=== PATIENT | female | born 1935 | race Caucasian/White ===

== ENCOUNTER 2016-09-26 14:15 | Inpatient (IN) | payer MEDICAID, MEDICARE ==
[~2016-09-26] VITALS: Ht 172.7 cm; Wt 110.7 kg
[~2016-09-26 14:15] MED LIST: ASPI325T32 PO; CHOL5000 PO; DONE5TAB30 PO; FLUT16SP NS; FOLI0.4T2 PO; HYDR-3939 PO; LEVO200T6 PO; LISI10TA PO; MAGN400T4 PO; NITR0.4T6 SL; POLY17PO6 PO; PRAM0.5T10 PO; TAMO10TA4 PO
[2016-09-26 14:19] VITALS: BP 125/68; PULSE 86; RESP 22; O2SAT 94
--- NOTE | 2016-09-26 14:54 | ED.REPORT ---
HPI-General Illness Date of Service Sep 26, 2016 ED Provider: Price Bhat DO Pt is a 80 y/o female with a history of metastatic low-grade endometrial adenocarcinoma, HTN, hyperlipidemia, presenting to the ED with her son c/o progressively worsening SOB onset 3 days ago. She believes her SOB is due to ascites. Pt c/o associated diarrhea for 2 days. Pt denies cough, change in lower extremity edema, abdominal pain, chills, fever, chest pain. She was discharged 30 days ago due to SBO. During that admission she had a bowel stent placed. She does not believe her symptoms are due to Influenza. Nursing Notes Stated Complaint: SHORTNESS OF BREATH Chief Complaint: Respiratory Distress Nursing Notes Reviewed: Yes Allergies: Coded Allergies: niacin (Verified Allergy, Severe, 08/24/16) amoxicillin (Verified Allergy, Unknown, 08/24/16) clavulanic acid (Verified Allergy, Unknown, 08/24/16) codeine (Verified Allergy, Unknown, 08/24/16) diphenhydramine (Verified Allergy, Unknown, 08/24/16) Scheduled Aspirin (Aspirin) 325 Mg Tablet 325 MG PO DAILY Cholecalciferol (Vitamin D3) (Vitamin D3) 5,000 Unit Capsule 5,000 UNIT PO 4xweekly Donepezil (Donepezil) 5 Mg Tablet 5 MG PO HS Fluticasone Propionate (Fluticasone Propionate Nasal) 16 Gm [place].susp 2 SPRAY NS DAILY Folic Acid (Folic Acid) 0.4 Mg Tablet 0.4 MG PO DAILY Hydralazine (Hydralazine) 25 Mg Tablet 25 MG PO TID Levothyroxine (Levothyroxine) 200 Mcg Tablet 200 MCG PO DAILY Lisinopril (Lisinopril) 10 Mg Tablet 10 MG PO DAILY Magnesium Oxide (Magnesium Oxide) 400 Mg Tablet 400 MG PO DAILY Polyethylene Glycol 3350 (Miralax) 17 Gm Powd.pack 17 GM PO DAILY Pramipexole Dihydrochloride (Pramipexole Dihydrochloride) 0.5 Mg Tablet 0.25 MG PO HS Tamoxifen Citrate (Tamoxifen Citrate) 10 Mg Tablet 20 MG PO BID Scheduled PRN Nitroglycerin SL (Nitroglycerin SL) 0.4 Mg Tab.subl 0.4 MG SL PRN For Chest Pain General Time Seen by MD: 14:53 Transferred From: [facility] Chief Complaint Breathing problem Hx Obtained From: Patient, Son Arrived By: Walk-in Sudden in Onset?: No Onset Occurred: 3 days ago Symptom Duration: Since onset Severity: Current: No pain currently Severity: Maximum: No pain Past Medical History Past Medical History Metastatic low grade endometrial adenocarcinoma, initially diagnosed 15-20 years ago, recurrence in 2006, and again in 2012 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 Severe diverticulosis chronic back pain History of superficial bladder cancer Large ventral abdominal wall hernia Reports: Cancer, GERD, Hyperlipidemia, Hypertension Past Surgical History Bowel resection x2 for recurrent CA Negative cardiac cath in 2005 Reports: Hysterectomy Reports: Portocath Smoking History Former Smoker, Never Smoker Social History Alcohol Use: Denies alcohol use Drug Use: Denies drug use Other Social History: Local resident Ambulatory Status Independent Review of Systems Full Review of Systems Constitutional: Denies: Chills, Fever Respiratory: Reports: Shortness of breath, Denies: Non-productive cough Cardiovascular: Denies: Chest pain, Edema GI: Reports: Diarrhea, Denies: Abdominal pain Complete sys rev & neg: except as marked. Physical Exam Vital Signs Vital Signs Date Time Temp Pulse Resp B/P Pulse Ox O2 Delivery O2 Flow Rate FiO2 09/26/16 17:48 89 15 149/70 94 Room Air 09/26/16 14:19 35.8 86 22 125/68 94 Room Air Initial VS: Reviewed Head / Eyes: Atraumatic, Normocephalic, PERRL Neck: Full range of motion Skin: Warm, Dry, No cyanosis Neurologic: Alert, Oriented, Nonfocal Psychiatric: Mood/affect normal, Behavior normal, Normal thought content General/Constitutional: Awake, Alert, No acute distress, Cooperative, Not toxic appearing Appearance / Presentation: Positive: Obese Abdomen: Atraumatic Back: Full range of motion, Painless range of motion Interpretation & Diagnostics Lab Results Interpretation Result Diagram: 09/26/16 1531 09/26/16 1531 Test 09/26/16 15:31 White Blood Count 6.8th/mm3 (3.8-10.1) Red Blood Count 4.53mil/mm3 (3.90-5.20) Hemoglobin 13.5g/dL (12.0-15.6) Hematocrit 39.4% (35.0-46.0) Mean Corpuscular Volume 87.0fL (81-100) Mean Corpuscular Hemoglobin 29.8pg (27.0-35.0) Mean Corpuscular Hemoglobin Concent 34.3% (32.0-37.0) Red Cell Distribution Width 13.8% (12.3-15.4) Platelet Count 167bil/L (150-400) Neutrophils (%) (Auto) 64.6% (40-74) Lymphocytes (%) (Auto) 23.2% (14-46) Monocytes (%) (Auto) 6.6% (4-12) Eosinophils (%) (Auto) 4.9% (0-5) Basophils (%) (Auto) 0.6% (0-3) Activated Partial Thromboplast Time 23.6sec (22.8-33.0) D-Dimer 5.1mg/L (<0.50) Sodium Level 135mEq/L (134-144) Potassium Level 3.5mEq/L (3.5-5.2) Chloride Level 97mEq/L (97-108) Carbon Dioxide Level 23mmol/L (18-29) Blood Urea Nitrogen 20mg/dL (8-27) Creatinine 0.96mg/dL (0.57-1.00) Estimat Glomerular Filtration Rate 80mL/min (>59) Glucose Level 112mg/dL (60-99) Calcium Level 9.3mg/dL (8.5-10.1) Magnesium Level 2.1mg/dL (1.6-2.6) Total Bilirubin 0.3mg/dL (0.0-1.2) Aspartate Amino Transf (AST/SGOT) 37U/L (0-50) Alanine Aminotransferase (ALT/SGPT) 33U/L (0-32) Alkaline Phosphatase 56U/L (25-165) Troponin T 0.028ug/L (0.0-0.011) Pro-B-Type Natriuretic Peptide 7516pg/mL (0-738) Total Protein 6.6g/dL (6.4-8.4) Albumin 3.7g/dL (3.4-5.0) Hold Harper Top Tube Received (Received) Lab Results Interpretation: ECG Interpretation ECG Interpretation: Sinus rhythm rate 77 S1 Q3 T3 present Time: 16:26 Interpreted by: ED physician Normal ECG Interpretation: No acute ischemic changes X-Ray Chest Interpretation Chest Xray Interpretation: IMPRESSION: Cardiomegaly. No acute pulmonary process. Dictated by: Divine Baum M.D. on 09/26/2016 at 15:32 Approved by: Divine Baum M.D. on 09/26/2016 at 15:32 View: Portable, 1 view Interpretation / Wet Read by: Interpret - Radiologist CT Chest Interpretation Prelim wet read: Bilateral PE Study type: CT pulm angiogram Interpretation / Wet Read by: Wet read ED physician Re-Eval/Medical Decision Med Decision/Clinical Course Bilateral pulmonary emboli, patient is heparinized in the ER, patient will be admitted. Source of Hx: Old records Time of Eval: 17:46 Re-Evaluation/Progress Note: Pt rechecked. Informed pt of need for admission due to PE. Pt understands and agrees with plan for admission. All questions addressed. Consultation : Referral / Consult Name: Paul Max MD Consulted With: Hospitalist Call Returned at: 18:22 Poly Area Supervisor: Will see patient, Agrees with eval, Agrees with plan, Accepts admit Counseled Regarding: Diagnosis, Lab results, Need for admission Discharge & Departure Primary Impression: Bilateral pulmonary embolism Disposition: ADMITTED TO HOSPITAL Discharge Condition All VS Reviewed: Yes Condition: Stable Referrals: Gilma Worrell (PCP) Crit Care Except Billable Proc Time Spent: 30-74 minutes Services Performed: Patient management by me, Time spent at bedside, Reviewing test results, Reviewing imaging, Discussing patient care, Documentation in record Critical Care Notes: See MDM Scribe Attestation Portions of this note were transcribed by David Echeverria and Chris Crystal. I , Dr. Bhat personally performed the history, physical exam and medical decision-making; I reviewed and confirmed the accuracy of the information in the transcribed note. Signed by: David Echeverria and Chris Crystal, Yelitza, [09/26/16] and [1600]. copies to: Gilma Worrell Timothy Ira BROWN Sep 26, 2016 14:54 David Echeverria Sep 26, 2016 16:00 CHRIS CRYSTAL Sep 26, 2016 16:24
[2016-09-26] MEDS ORDERED: Ondansetron 2 mg/mL 2 mL Inj IVPUSH ONE (15:20)
[2016-09-26] MEDS ORDERED: 0.9% Sodium Chloride 1,000 ML IV ONE (15:20)
--- NOTE | 2016-09-26 15:34 | DRSVH ---
PROCEDURE: X-RAY CHEST ONE VIEW, PORTABLE ([id number]) INDICATIONS: Exertional SOB TECHNIQUE: One view of the chest was acquired. COMPARISON: [facility], , CHEST 2VW, 11/07/2012, 10:50. FINDINGS: Surgical changes and devices: None. Lungs and pleura: No pleural effusions or pneumothorax. Lungs are clear. Mediastinum: Mediastinal contours appear normal. Heart size is enlarged. Bones and chest wall: No suspicious bony lesions. Overlying soft tissues appear unremarkable. IMPRESSION: Cardiomegaly. No acute pulmonary process. Dictated by: Divine Baum M.D. on 09/26/2016 at 15:32 Approved by: Divine Baum M.D. on 09/26/2016 at 15:32
[2016-09-26 15:42] LABS: BASOPHILS % (AUTO) 0.6 % (0-3); EOSINOPHILS % (AUTO) 4.9 % (0-5); MONOCYTES % (AUTO) 6.6 % (4-12); Mean Corpuscular Hemoglobin 29.8 pg (27.0-35.0); NEUTROPHILS % (AUTO) 64.6 % (40-74); Platelet Count 167 bil/L (150-400)
[2016-09-26 16:04] LABS: TROPONIN T 0.028 ug/L (0.0-0.011)
[2016-09-26 16:15] LABS: Magnesium 2.1 mg/dL (1.6-2.6)
[2016-09-26] MEDS ORDERED: Heparin 25K Unit/500mL 0.45 NS 25,000 UNIT in IV Premix 1 EACH IV ONE (17:45)
[2016-09-26] MEDS ORDERED: Heparin 5,000 Unit/mL Inj IVPUSH ONE (17:45)
[2016-09-26 17:48] VITALS: BP 149/70; PULSE 89; RESP 15; O2SAT 94
--- NOTE | 2016-09-26 18:25 | DRSVH ---
PROCEDURE: CT ABDOMEN AND PELVIS WITH CONTRAST ([id number]) INDICATIONS: dyspnea and abdominal pain. TECHNIQUE: After the administration of intravenous contrast, 5 mm thick sections acquired from the diaphragm to the symphysis. 5 mm coronal and sagittal reformats were acquired. For radiation dose reduction, the following was used: automated exposure control, adjustment of mA and/or kV according to patient bety cadena. COMPARISON: [facility], CT, CT CHEST ABD PELVIS W CON, 07/05/2016, 12:02. [facility], CT, CT ABD PELVIS W CON, 08/24/2016, 13:01. FINDINGS: Image quality: Excellent. ABDOMEN: Lung bases: Lung bases are clear. Heart size is normal. Solid organs: Liver and spleen are normal in size and enhancement. Gallbladder is surgically absent . Biliary system is non dilated. Pancreas enhances normally. No adrenal nodules. Kidneys demonstr ate normal size and enhancement, without hydronephrosis. Peritoneum and bowel: The there is a 1.6 x 3.1 cm soft tissue nodule in the left lower anterior abdo men (series 11 image 52), unchanged. A 2.2 x 1.0 cm peritoneal/omental nodule seen at midline (series 11 image 41), also unchanged. There is a stent in rectosigmoid junction, which is thickened. Bowel l oops demonstrate normal wall thickness and caliber. No free fluid or air. Nodes and vessels: No retroperitoneal or mesenteric adenopathy by size criteria. Aorta and inferior vena cava are normal in size. Miscellaneous: There is a ventral hernia with wide neck. PELVIS: Genitourinary: Bladder wall thickness is normal. Miscellaneous: No inguinal hernias or adenopathy. Bones: No suspicious bony lesions. No vertebral body compression fractures. IMPRESSION: 1. A stent present in the rectosigmoid junction which is thickened. No evidence for bowel obstruction . 2. Stable peritoneal carcinomatosis. 3. Wide-necked ventral hernia. Dictated by: Fabrizio Broussard M.D. on 09/26/2016 at 18:24 Approved by: Fabrizio Broussard M.D. on 09/26/2016 at 18:24
--- NOTE | 2016-09-26 18:31 | DRSVH ---
PROCEDURE: CT ANGIO CHEST PULMONARY EMBOLISM ([id number]) INDICATIONS: dyspnea, elevated ddimer TECHNIQUE: After the administration of intravenous contrast, 2 mm thick sections acquired from the pulmonary api margaret to the posterior costophrenic angles. 3-dimensional maximum intensity projection (MIP) coronal a nd sagittal reformats were then acquired through the thorax. For radiation dose reduction, the follo wing was used: automated exposure control, adjustment of mA and/or kV according to patient size. COMPARISON: [facility], CT, CT ABD PELVIS W CON, 09/26/2016, 17:04. [facility], CT, CT CHEST ABD PELVIS W CON, 01/05/2016, 12:32. [facility], CT, CT CHEST ABD PELVIS W CON, 07/05/2016, 12:02. FINDINGS: Image quality: Excellent. Pulmonary arteries: There are extensive filling defects the main pulmonary arteries bilaterally, as well as the low arteries and segmental arteries, consistent with extensive central pulmonary embolism . Pulmonary arteries are normal in size. Lungs and pleura: Lungs are clear. No pleural effusions or pneumothorax. Central and peripheral ai rways are patent. Mediastinum: Heart size is normal, without pericardial effusion. No mediastinal or hilar adenopathy . Thoracic aorta is normal in caliber and enhancement. Esophagus is normal in caliber, without hiat al hernia. Bones and chest wall: No suspicious bony lesions. Ribs and thoracic spine appear intact throughout. Thyroid gland is unremarkable. No axillary or supraclavicular adenopathy. Abdomen: Visualized upper abdominal solid organs appear normal in the early arterial phase of enhanc ement. IMPRESSION: 1. Extensive central pulmonary embolism bilaterally. The result was discussed with Dr. Bhat prior to dictation. Dictated by: Fabrizio Broussard M.D. on 09/26/2016 at 18:29 Approved by: Fabrizio Broussard M.D. on 09/26/2016 at 18:29
--- NOTE | 2016-09-26 18:45 | PCM.HPMED ---
Subjective Date of Service Sep 26, 2016 Primary Provider: Admitting Physician: Primary Care Physician: Gilma Worrell Attending Physician: Chief Complaint: Progressive worsening shortness of breath 3 days History of Present Illness: Pt is a 80 y/o female with a history of metastatic low-grade endometrial adenocarcinoma, HTN, hyperlipidemia, presenting to the ED with her son c/o progressively worsening SOB onset 3 days ago. She believes her SOB is due to ascites. Pt c/o associated diarrhea for 2 days. Pt denies cough, change in lower extremity edema, abdominal pain, chills, fever, chest pain. She was discharged 30 days ago due to SBO. During that admission she had a bowel stent placed. She does not believe her symptoms are due to Influenza. Review of Systems: Gen.: No fevers chills weight loss weight gain Eyes: no visual disturbances or blurring vision HEENT: No nose/throat drainage, no pain in ears or throat, no hearing loss Lymph: No lymph nodes noted Cardiac: No chest pain, orthopnea, PND, palpitations , chronic pedal edema sudden onset dyspnea Pulmonary: no cough, wheezing or bringing up of sputum, sudden onset dyspnea GI: No anorexia nausea vomiting blood or black in the stool : no dysuria hematuria urinary frequency or decrease in urine output Musculoskeletal: Joint swelling no joint pain no new muscle aches or back pain... legs are locked in and painful Neuro: No syncope, seizures no loss of consciousness no new focal weakness, numbness or tingling Psychiatric: New new anxiety insomnia or depression Endocrine: No new heat or cold intolerances polyuria or polydipsia Hematology: No lymphadenopathy or easy bleeding or bruising noted skin: No new rashes, stasis dermatitis Allergies Coded Allergies: niacin (Verified Allergy, Severe, 09/26/16) amoxicillin (Verified Allergy, Unknown, 09/26/16) clavulanic acid (Verified Allergy, Unknown, 09/26/16) codeine (Verified Allergy, Unknown, 09/26/16) diphenhydramine (Verified Allergy, Unknown, 09/26/16) Home Medications Scheduled Aspirin (Aspirin) 325 Mg Tablet 325 MG PO DAILY Cholecalciferol (Vitamin D3) (Vitamin D3) 5,000 Unit Capsule 5,000 UNIT PO 4xweekly Donepezil (Donepezil) 5 Mg Tablet 5 MG PO HS Fluticasone Propionate (Fluticasone Propionate Nasal) 16 Gm [place].susp 2 SPRAY NS DAILY Folic Acid (Folic Acid) 0.4 Mg Tablet 0.4 MG PO DAILY Hydralazine (Hydralazine) 25 Mg Tablet 25 MG PO TID Levothyroxine (Levothyroxine) 200 Mcg Tablet 200 MCG PO DAILY Lisinopril (Lisinopril) 10 Mg Tablet 10 MG PO DAILY Magnesium Oxide (Magnesium Oxide) 400 Mg Tablet 400 MG PO DAILY Polyethylene Glycol 3350 (Miralax) 17 Gm Powd.pack 17 GM PO DAILY Pramipexole Dihydrochloride (Pramipexole Dihydrochloride) 0.5 Mg Tablet 0.25 MG PO HS Tamoxifen Citrate (Tamoxifen Citrate) 10 Mg Tablet 20 MG PO BID Scheduled PRN Nitroglycerin SL (Nitroglycerin SL) 0.4 Mg Tab.subl 0.4 MG SL PRN For Chest Pain PMH Social History Hx Alcohol Use: Yes (occasional) Hx Substance Use: No Hx Tobacco Use: No Smoking Status: Former Smoker, Never Smoker Exam Vital Signs Vital Sign - Last Date Time Temp Pulse Resp B/P Pulse Ox O2 Delivery O2 Flow Rate FiO2 09/26/16 17:48 89 15 149/70 94 Room Air 09/26/16 14:19 35.8 Exam Gen.- A+ O 3 no apparent distress.morbidly obese patient lying in bed Eyes- open conjunctiva clear, pupils equal nonicteric ENT- ears normal, nose normal Neck- supple/trach midline CVS- RRR no murmur or gallop, 2-3+ pitting edema bilaterally of the legs Lungs CTA GI- NABS/NT soft Musc- moving 4 no obvious deformity Neuro- cranial nerves II through XII intact to gross examination, nonfocal Skin- warm and dry, erythema bilaterally lower extremity Psych- pleasant and appropriate, Lab and Diagnostics Labs trop 0.028, bnp 7516 LFTs wnl fadumo "H" 33 UA neg Result Diagram: 09/26/16 1531 09/26/16 1531 X-Rays, CTs and MRIs CT abd/pelvis 1. A stent present in the rectosigmoid junction which is thickened. No evidence for bowel obstruction. 2. Stable peritoneal carcinomatosis. 3. Wide-necked ventral hernia. CTA chest 1. Extensive central pulmonary embolism bilaterally. CXR-Cardiomegaly. No acute pulmonary process. 12-lead ECG Sinus with a rate of 77 borderline [place] intervals feel, QTC 503 ms nonspecific abnormalities in anterior leads with flattening T waves lateral no acute ST segment elevations personally reviewed by me Cardiac Echo Impressions 12/22/14 There is moderate concentric left ventricular hypertrophy. Left ventricular systolic function is normal without focal wall motion abnormalities. The ejection fraction is estimated to be 60-65%. Assessment of diastolic parameters indicates a relaxation abnormality of the left ventricle, consistent with normal filling pressures. The right ventricle is normal in size and function. The left atrium is moderately dilated. Right atrial size is normal. There is no significant valvular heart disease. The aortic root is normal size. Assessment & Plan 80-year-old female with cancer presents with shortness of breath and is found to have fairly substantial pulmonary emboli PE-patient on a heparin drip, starting warfarin but one could easily argue that she should be discharged on Lovenox as this is cancer related. We will obtain Dopplers of the legs to determine whether this is the source as well as an echocardiogram to determine if there is actually ventricular strain to have grade the severity of clot burden, elevated BNP is concerning. Suggest patient should probably be on a heparin drip for 5 days and be therapeutic on warfarin before she leaves.she has DVTs I am going to keep her on bed rest as I am fearful that she has substantial enough clot burden that mobilizing anything may cause her to decompensate. Leg pain- patient may have restless legs would examine gabapentin perhaps long-acting morphine Palliative care- patient is very clear she wants to be comfortable and we seemingly have not achieved that goal with her. Therefore I have ordered palliative care consultation but not made any calls as I did so it after midnight. Uterine cancer- continue home meds Hypertension- continue home meds Prophylaxis- DVT patient's already on a heparin dripSCDs are contraindicated with DVT, GI not indicated that she yet Disposition- DO NOT RESUSCITATE from a prison Palu Max MD Sep 26, 2016 18:45
[2016-09-26] MEDS ORDERED: Ondansetron 2 mg/mL 2 mL Inj IVPUSH PRN (18:50)
[2016-09-26] MEDS ORDERED: Alum-Mag Hydrox-Simeth 30 mL Suspension PO PRN (18:50)
[2016-09-26 19:30] VITALS: BP 135/75; PULSE 82; RESP 19; O2SAT 94
[2016-09-26] MEDS ORDERED: TAMO20TA4 PO (19:40)
[2016-09-26] MEDS ORDERED: POLY17PO6 PO (19:40)
[2016-09-26] MEDS ORDERED: FURO40TA4 PO (19:40)
[2016-09-26] MEDS ORDERED: FOLI0.8C PO (19:40)
[2016-09-26 20:05] VITALS: BP 146/75; PULSE 90; RESP 21; O2SAT 96
--- NOTE | 2016-09-26 21:00 | NUR ---
Admit: Pt transferred from ED. Ambulated from [facility] to [facility] bed with 1 assist. Pt is a/o x3 but a little forgetful. VSS. No orders received yet.
[2016-09-26] MEDS ORDERED: Polyethylene Glycol (PEG) 17 Gm Powder PO PRN (21:55)
[2016-09-26] MEDS ORDERED: Fluticasone 0.05% 15 Spray/2 Gm 16 Gm Nasal Spray NASAL PRN (21:55)
[2016-09-26 23:26] VITALS: PULSE 88
[2016-09-27] VITALS (7 sets, daily range): BP systolic 114–149; BP diastolic 52–78; PULSE 74–82; RESP 12–20; O2SAT 94–97
[2016-09-27] MEDS: HYDROcodone-APAP 5-325 mg Tablet PO PRN ×2 (00:05→09:16)
--- NOTE | 2016-09-27 00:24 | PCM.CONPHA ---
Subjective Date of Service: Sep 27, 2016 Requesting Provider: Paul Max MD Reason for Pharmacy Consult: Anticoagulation Management Objective Vital Signs Date Time Temp Pulse Resp B/P Pulse Ox O2 Delivery O2 Flow Rate FiO2 09/26/16 23:26 88 09/26/16 20:30 Supplement Oxygen 09/26/16 20:05 36.7 90 21 146/75 96 Nasal Cannula 2.00 09/26/16 19:30 82 19 135/75 94 Nasal Cannula 2 09/26/16 17:48 89 15 149/70 94 Room Air 09/26/16 14:19 35.8 86 22 125/68 94 Room Air Intake and Output 09/24/16 09/25/16 09/26/16 23:59 23:59 23:59 Intake Total 1000 ml Balance 1000 ml Weight (Kilograms): 112.600 Height (Feet): 5 Height (Inches): 8.00 Test 09/26/16 15:31 09/26/16 22:55 White Blood Count 6.8th/mm3 (3.8-10.1) Red Blood Count 4.53mil/mm3 (3.90-5.20) Hemoglobin 13.5g/dL (12.0-15.6) Hematocrit 39.4% (35.0-46.0) Mean Corpuscular Volume 87.0fL (81-100) Mean Corpuscular Hemoglobin 29.8pg (27.0-35.0) Mean Corpuscular Hemoglobin Concent 34.3% (32.0-37.0) Red Cell Distribution Width 13.8% (12.3-15.4) Platelet Count 167bil/L (150-400) Neutrophils (%) (Auto) 64.6% (40-74) Lymphocytes (%) (Auto) 23.2% (14-46) Monocytes (%) (Auto) 6.6% (4-12) Eosinophils (%) (Auto) 4.9% (0-5) Basophils (%) (Auto) 0.6% (0-3) Activated Partial Thromboplast Time 23.6sec (22.8-33.0) D-Dimer 5.1mg/L (<0.50) Sodium Level 135mEq/L (134-144) Potassium Level 3.5mEq/L (3.5-5.2) Chloride Level 97mEq/L (97-108) Carbon Dioxide Level 23mmol/L (18-29) Blood Urea Nitrogen 20mg/dL (8-27) Creatinine 0.96mg/dL (0.57-1.00) Estimat Glomerular Filtration Rate 80mL/min (>59) Glucose Level 112mg/dL (60-99) Calcium Level 9.3mg/dL (8.5-10.1) Magnesium Level 2.1mg/dL (1.6-2.6) Total Bilirubin 0.3mg/dL (0.0-1.2) Aspartate Amino Transf (AST/SGOT) 37U/L (0-50) Alanine Aminotransferase (ALT/SGPT) 33U/L (0-32) Alkaline Phosphatase 56U/L (25-165) Troponin T 0.028ug/L (0.0-0.011) Pro-B-Type Natriuretic Peptide 7516pg/mL (0-738) Total Protein 6.6g/dL (6.4-8.4) Albumin 3.7g/dL (3.4-5.0) Hold Harper Top Tube Received (Received) Prothrombin Time 10.7sec (8.1-12.5) Prothromb Time International Ratio 1.00ratio Assessment/Plan Assessment/Plan A: * Warfarin dosing by pharmacy for 80 y/o woman with PE * She was on IV heparin in the ED, switched to therapeutic Lovenox inpatient * The patient is on tamoxifen, which can increase INR significantly P: * Give one dose of warfarin 5 mg * Draw daily INR * Target INR range of 2 - 3 * Pharmacy to monitor INR and determine doses accordingly Thank you. Pharmacy will continue to follow. Samantha Childers, PharmD Samantha Childers Sep 27, 2016 00:24
[2016-09-27] MEDS ORDERED: Heparin 5,000 Unit/mL Inj IVPUSH PRN (01:00)
[2016-09-27] MEDS: Sodium Chloride LOK Flush 10 mL Syringe IVFLUSH SCH ×3 (01:02→16:30)
--- NOTE | 2016-09-27 02:13 | NUR ---
Pain Pt states she is responding well to the PRN Morphine medication with a pain level of 9/10. Pt states she has a minor ache and throb to both lower legs.
[2016-09-27 06:05] LABS: BASOPHILS % (AUTO) 0.9 % (0-3); EOSINOPHILS % (AUTO) 7.8 % (0-5); MONOCYTES % (AUTO) 7.1 % (4-12); Mean Corpuscular Hemoglobin 29.6 pg (27.0-35.0); Mean Corpuscular Volume 87.7 fL (81-100); NEUTROPHILS % (AUTO) 50.8 % (40-74); Platelet Count 161 bil/L (150-400)
[2016-09-27 07:07] LABS: TROPONIN T 0.013 ug/L (0.0-0.011)
--- NOTE | 2016-09-27 08:51 | DRSVH ---
PROCEDURE: US VENOUS LEG DUPLEX BILATERAL INDICATIONS: 80 year-old female with pulmonary embolism, uterine carcinoma and melanoma. TECHNIQUE: Real-time imaging, as well as color and pulse Doppler interrogation, were performed of the deep veins of both legs from the inguinal ligament to the popliteal fossa. COMPARISON: [facility], CT, CT ANGIO CHEST PE, 09/26/2016, 17:04. FINDINGS: Preliminary interpretation rendered by [facility]. Nonocclusive echogenic thrombi are noted in both inferior portions of the superficial femoral veins a nd both popliteal veins. The common femoral veins are normally compressible and free of intraluminal thrombus. Color and pulse Doppler demonstrate normal phasic intravascular flow. IMPRESSION: Bilateral nonocclusive deep venous thrombosis in the inferior portions of the superficial femoral veins and popliteal veins. No significant discrepancy with preliminary [facility] report. Dictated by: Samuel Vo M.D. on 09/27/2016 at 8:49 Approved by: Samuel Vo M.D. on 09/27/2016 at 8:49
--- NOTE | 2016-09-27 09:15 | PCM.PALLBR ---
Palliative Care Recommendation Pleasant 80-year-old woman with long history of indolent metastatic endometrial cancer, now presenting with bilateral pulmonary emboli. Significant forgetfulness/dementia, per her son significantly exacerbated with hospitalization. Palliative medicine consulted to review goals of care. Reviewed plans today with her son/POA by phone. Summary of palliative recommendations: -Symptom management (Pain/other)- continue symptomatic management of her mild pleuritic chest discomfort with medications ordered by hospitalist. Continues on IV heparin at this time- her forgetfulness and anticipated difficulty taking medications properly at home will definitely have an impact on choice of long-term anticoagulation (her son thinks subcutaneous injections daily will not be possible). Monitor pain in the coming days and adjust her pain medications as needed, aware of the potential for increasing confusion, etc. in light of her underlying dementia. -DPOA/Advanced Directives/POLST- DO NOT RESUSCITATE/DO NOT INTUBATE/limited interventions. Plan on completing new POLST prior to discharge. -Family/emotional support- her son has been very supportive. He and other family members are considering encouraging a transition to assisted living/SNF- this may be necessary in light of her additional new medications for treatment of her pulmonary emboli. Further conversations with case management/discharge planning in the coming days. Patient Goals: 1. Patient and family want to be told the truth about her illness, even if it is unpleasant. 2. Patient and family would like to be told prognosis when it can be predicted, to better guide treatment decisions. Additional Medical Diagnoses with primary management by Hospitalist team include : PE-patient on a heparin drip, starting warfarin but one could easily argue that she should be discharged on Lovenox as this is cancer related. Leg pain- patient may have restless legs would examine gabapentin perhaps long-acting morphine Palliative care- patient is very clear she wants to be comfortable and we seemingly have not achieved that goal with her. Therefore I have ordered palliative care consultation but not made any calls as I did so it after midnight. Uterine cancer- continue home meds Hypertension- continue home meds Prophylaxis- DVT patient's already on a heparin dripSCDs are contraindicated with DVT, GI not indicated that she yet Problems: End of Life Preferences DO NOT RESUSCITATE/DO NOT INTUBATE/limited interventions Goals of Care Patient prefers to return to her own home, though her viability there is becoming tenuous Disposition To be determined Resuscitation Status Resuscitation Status: Limited Interventions POLST Updates/Changes Previous POLST?: No . Pain: Mild Symptom management: Pain Total time 60 minutes; >50% face to face with patient and family, providing counselling regarding plans and recommendations, and in care coordination with her medical teams. Of the above total time, 10 minutes counseling for advanced care planning with the patient and her son, reviewing advanced directive issues and POLST Palliative Brief Note Date of Service Sep 27, 2016 . Pleasant 80-year-old woman admitted with bilateral pulmonary emboli, in setting of long-standing/indolent metastatic endometrial cancer. Was recently hospitalized with bowel obstruction and was seen by palliative medicine during that admission as well (please refer to my initial consultation note of 08/25/16 as well as follow-up notes). Palliative medicine consult once again to review goals of care, etc. Prior to visiting patient, I reviewed her records in the EMR in detail. On my arrival, she is sitting up in bed, eating breakfast. As before, she is very pleasant but extremely forgetful. Cannot remember why she is here, cannot remember having met me before, cannot recall clearly the events that brought her into the hospital. She complains of some diffuse pleuritic chest discomfort (and cannot recall receiving pain medication for it, so she has received both oral and IV meds in the evening). She denies any significant dyspnea, nausea, abdominal pain or other symptoms. She says her bowel function is fine but cannot remember having had placement of the colonic stent at her last hospitalization. She denies any recent problems with her legs such as pain , increased swelling or other. She does say she has problems chronically with restless legs. On exam, she is a heavyset woman lying in bed. In no obvious distress. Vital signs noted. Skin is pink, warm and dry. Head and neck exam without acute focal findings. Lungs with decreased breath sounds diffusely, at least partly because of her bulk. Heart sounds distant and regular. Abdomen is obese, soft , without tenderness or peritoneal signs. Ankles without pitting edema. No calf pain or tenderness, no palpable cords. After visiting her, I called her son/BARRETT Christian. He is her primary helper, though she continues to live alone. He said that they have begun talking about possible move to assisted living or SNF (though when I asked the patient about this she refuses to consider such placement and so she is going home). Her son notes that her forgetfulness, mood and overall status deteriorate when she is in the hospital, and that when she is at home she is quite high functioning. He and the rest of the family are concerned that she may not be taking her medications properly however, and this will likely have an impact on ongoing therapy for her pulmonary emboli. He notes that she would absolutely refused to do any sort of subcutaneous injections (which makes it unlikely that Lovenox will be an option). I inquired about a POLST form and as far as her son knows she does not have one. Reviewed her CODE STATUS which is DO NOT RESUSCITATE/DO NOT INTUBATE but she does wish other ongoing treatment and interventions as needed. This plan is unchanged from her last hospitalization. Flako Marlow MD Sep 27, 2016 09:15
[2016-09-27] MEDS: Heparin 25K Unit/500mL 0.45 NS 25,000 UNIT in IV Premix 1 EACH IV SCH (10:39)
[2016-09-27 11:07] LABS: APPEARANCE,URINE HAZY (CLEAR,HAZY); COLOR,URINE STRAW (YELLOW); OCCULT BLOOD,URINE NEGATIVE (NEGATIVE); PH,URINE 5.5 (5.0-8.0); UROBILINOGEN,URINE NORMAL (NORMAL)
--- NOTE | 2016-09-27 11:40 | NUR ---
Social Work Note: Initial Assessment Data& Assessment: EMR reviewed. YANIRA met with pt at bedside to discuss discharge planning, SW role explained. Cyndee Ware is a 80 year old female admitted on 09/26/2016 for bilateral PE. Pt has [employer] Medicare insurance coverage and sees DORA Keith for primary care. Pt lives in [place] alone in a 55+ community. Pt is independent with all ADL's at baseline. Pt uses a cane for ambulation assistance. Pt denies any HH or SNF hx. Pt denies VA benefits but does have LTC insurance. Pt does use BIPAP at night but does not remember which company she has it though. Pt son Gino ([phone]) who lives in [place] will transport pt home when medically ready. Pt has [employer] paperwork completed, SW requested a copy for her chart when possible. Pt is a very active member in the community and is a part of a live drawing group that meets in [place]. Pt denies any other needs at this time. No other discharge needs identified. YANIRA provided contact number on pt whiteboard. SW to continue to follow if any needs arise. Plan: Anticipated discharge home via POV when medically ready. Pt denies any other needs at this time. No other discharge needs identified. YANIRA provided contact number on pt whiteboard. SW to continue to follow if any needs arise. NELSON Cristina Addendum: 09/27/16 at 1149 by TAMI BUNCH Amended: Links added.
--- NOTE | 2016-09-27 12:09 | NUR ---
Palliative Care Palliative Care received order from Dr Max 09/27/16 to assist with goals of care. Patient is an 80 year old female with history of metastatic endometrial adenocarcinoma, HTN and hyperlipidemia. She was admitted 09/26/16 due to SOB and is receiving care for bilateral PE. Palliative Care MD saw patient during 08/2016 admission. Patient lives alone at a 55+ intermediate community. Gino Ware (son) [phone], Palliative Care to follow. Tangela Trinidad
--- NOTE | 2016-09-27 13:50 | PCM.PNMED ---
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 Hospital day #2. Overnight:There were no acute events. Telemetry overnight: Sinus rhythm, heart rate 70-80's without ectopy. The patient is resting in bed comfortably and in no acute distress. She endorses chronic shortness of breath and depression. She denies headache, cough , chest pain, abdominal pain, nausea, vomiting, fever, chills, dysuria, constipation or diarrhea. The patient is voiding and eliminating without difficulty. Per her son, she has significant forgetfulness and dementia which is exacerbated with hospitalization. . Exam Vital Signs Vital Sign - Last Date Time Temp Pulse Resp B/P Pulse Ox O2 Delivery O2 Flow Rate FiO2 09/27/16 11:31 36.6 74 20 130/52 95 Nasal Cannula 5.00 Intake and Output 09/26/16 09/26/16 09/27/16 Cumulative From/Thru 15:00 23:00 07:00 09/26/16 14:19 - 09/27/16 06:50 Intake Total 1000 ml 690 ml 1690 ml Output Total 200 ml 200 ml Balance 1000 ml 490 ml 1490 ml Intake Oral 300 ml 300 ml IV Total 1000 ml 390 ml 1390 ml Output Urine Total 200 ml 200 ml Exam General: Elderly female lying in bed and in no acute distress, appropriately interactive, severe dementia. HEENT: Normocephalic, atraumatic. External ears without defect. Pupils equal, round, and reactive to light. Anicteric sclerae, moist conjunctivae, and no lid lag. Oropharynx free of erythema and cobble stoning with moist mucosa. Neck: Supple with full range of motion. No jugular venous distension. No bruits. No lymphadenopathy or thyromegaly. Cardiovascular: Regular rate and rhythm with no murmurs, rubs, or gallops appreciated Pulmonary: Clear to auscultation bilaterally with no crackles, wheezes, or rhonchi. Normal respiratory effort with no use of accessory muscles. Abdomen: Soft, nontender, nondistended, bowel tones present. No hepatosplenomegaly or masses appreciated. Extremities: No clubbing, cyanosis, or edema. Skin: Normal temperature, turgor, and texture; no rash, ulcers, or subcutaneous nodules appreciated. Neurological: Severe dementia. Psychiatric: Normal mood and affect. . IVs and Medications Medications Reviewed: Medications were reviewed in detail Lab and Diagnostics Item Value Date Time Troponin T 0.028 ug/L H 09/26/16 1531 Troponin T 0.013 ug/L H 09/27/16 0548 Result Diagram: 09/27/1648 09/27/16547 Microbiology Influenza screen negative. . X-Rays, CTs and MRIs X-RAY CHEST ONE VIEW, PORTABLE IMPRESSION: Cardiomegaly. No acute pulmonary process. Dictated by: Divine Baum M.D. on 09/26/2016 at 15:32 Approved by: Divine Baum M.D. on 09/26/2016 at 15:32 CT ANGIO CHEST PULMONARY EMBOLISM IMPRESSION: 1. Extensive central pulmonary embolism bilaterally. The result was discussed with Dr. Bhat prior to dictation. Dictated by: Fabrizio Broussard M.D. on 09/26/2016 at 18:29 Approved by: Fabrizio Broussard M.D. on 09/26/2016 at 18:29 CT ABDOMEN AND PELVIS WITH CONTRAST IMPRESSION: 1. A stent present in the rectosigmoid junction which is thickened. No evidence for bowel obstruction. 2. Stable peritoneal carcinomatosis. 3. Wide-necked ventral hernia. Dictated by: Fabrizio Broussard M.D. on 09/26/2016 at 18:24 Approved by: Fabrizio Broussard M.D. on 09/26/2016 at 18:24 US VENOUS LEG DUPLEX BILATERAL IMPRESSION: Bilateral nonocclusive deep venous thrombosis in the inferior portions of the superficial femoral veins and popliteal veins. No significant discrepancy with preliminary [facility] report. Dictated by: Samuel Vo M.D. on 09/27/2016 at 8:49 Approved by: Samuel Vo M.D. on 09/27/2016 at 8:49 . 12-lead ECG EKG: Sinus rhythm, heart rate 77, borderline TX intervals and QTc prolongation of 503 ms, nonspecific abnormalities in anterior leads with T wave flattening, no pathological q waves or acute ischemic changes such as ST elevation or depression. . Cardiac Echo Impressions Echocardiogram Interpretation Summary: Left ventricular systolic function is normal with the ejection fraction visually estimated to be 65-70% without focal wall motion abnormalities except for a flattened interventricular septum, consistent with a right ventricular pressure overload condition which is new compared to the previous study. Left ventricular wall thickness is mild-moderately increased with a relatively small left ventricular cavity and diastolic parameters suggesting a relaxation abnormality of the left ventricle, consistent with normal filling pressures which is unchanged compared to the previous study. The right ventricle is moderately dilated and right ventricular systolic function is moderate to severely reduced which is new compared to the previous study. There is likely at least moderate pulmonary hypertension with the right ventricular systolic pressure estimated to be at least 47 mmHg assuming a right atrial pressure of 3 mm Hg. Comparison with the previous study is not possible because this was unable to be assessed on the previous study. The atria are not well visualized. There is mild tricuspid regurgitation but no other significant valvular heart disease. Reading Physician:01:51 PM . 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 Hospital day #2. 1. Acute bilateral central pulmonary emboli, present on admission. Active. - CTA showed extensive central pulmonary embolism bilaterally. - Continue PE heparin gtt. - Consider discharging on Lovenox vs warfarin vs novel anticoagulant since her clot burden is secondary to malignancy. Will discuss with her oncologist/ host/hostess restaurant Dr. Chowdhury. - Venous Doppler shows bilateral non-occlusive deep venous thrombosis in the inferior portions of the superficial femoral veins and popliteal veins, as above - Echocardiogram ordered to assess RVSP and grade the severity of clot burden, pending. - Strict bed rest in case of substantial enough clot burden and mobilizing anything may cause her to decompensate. 2. Depression, secondary to chronic disease, unknown acuity, present on admission. - Palliative care was consulted for goals of care and symptom management. Chronic Problems: Restless leg syndrome, chronic. - Admitting physician reported leg pain for which the patient denies today. - Continue pramipexole 0.25 mg daily before bedtime. - Continue hydrocodone 5-325 mg 1-2 tabs every four hours as needed for pain and morphine 1-2 mg IV as needed for severe pain pending palliative care recommendations. Indolent low-grade metastatic ER-positive endometrioid adenocarcinoma on tamoxifen, chronic. - Recent peritoneal mets that caused rectosigmoid obstruction. - Continue Tamoxifen 20 mg twice daily. Hypertension, chronic. - Continue lisinopril 10 mg daily. Dementia, chronic. - Donepezil 5 mg daily before bedtime. - Continue ASA 325 mg daily. Hypothyroidism, chronic. - Continue levothyroxine 200 mcg daily. PRN antiemetics: Zofran and Maalox. PRN bowel regimen: Senna and MiraLAX. PRN analgesics: Tylenol High risk medications: Heparin gtt. Disposition: Discharge back to [facility] when medical treated and ready. . VTE Prophylaxis: Other (Heparin gtt) Resuscitation Status: DNR/DNI:Do Not Resuscitate/Intubate Attending Statement The patient was seen and examined together with Dr. Wood on 09-27-16 I agree with the history, exam and plan as outlined in the note above. Bernadine Chung DO Sep 27, 2016 13:50 Seth Devine MD Sep 28, 2016 15:26
--- NOTE | 2016-09-27 13:52 | DRSVH ---
[facility] [address] [place] [address] Echocardiogram Report Name: PHILOMENA SIMMS JStudy Date : 09/27/2016 Height: 68 in Hospital Exam Location: [facility] Weight: 24 8 lb Gender: Female BSA: 2.2 m2 : 1935 Age: 80 yrs BP: 134/78 mmHg Reason For Study: Pulmonary- Embolism Ordering Physician: HOSPITALIST [facility] Performed By: Samina Louise Referring Physician: Gilma Worrell Interpretation Summary Left ventricular systolic function is normal with the ejection fraction visually estimated to be 65-70% without focal wall motion abnormalities except for a flattened interventricular septum, consistent with a right ventricular pressure overload condition which is new compared to the previous study. Left ventricular wall thickness is mild-moderately increased with a relatively small left ventricular cavity and diastolic parameters suggesting a relaxation abnormality of the left ventricle, consistent with normal filling pressures which is unchanged compared to the previous study. The right ventricle is moderately dilated and right ventricular systolic function is moderate to severely reduced which is new compared to the previous study. There is likely at least moderate pulmonary hypertension with the right ventricular systolic pressure estimated to be at least 47 mmHg assuming a right atrial pressure of 3 mm Hg. Comparison with the previous study is not possible because this was unable to be assessed on the previous study. The atria are not well visualized. There is mild tricuspid regurgitation but no other significant valvular heart disease. Procedure: A two-dimensional transthoracic echocardiogram with color flow and Doppler was performed. The study quality was technically difficult. Comparison is made with the echocardiogram of 12/22/2014. A contrast injection of Definity was performed to improve assessment of LV function. The patient was in normal sinus rhythm during the exam. Left Ventricle: The left ventricle is normal in size. Left ventricular wall thickness is mild-moderately increased. The left ventricular cavity is small. There is no thrombus. Left ventricular systolic function is normal without focal wall motion abnormalities. The ejection fraction is estimated to be 65- 70%. Flattened septum is consistent with RV pressure overload. This is new compared to the previous study. Spectral Doppler of the mitral valve is reversed, with an E/A wave ratio < 0.8. Assessment of diastolic parameters indicates a relaxation abnormality of the left ventricle, consistent with normal filling pressures. This is unchanged compared to the previous study. Right Ventricle: There is no mass or thrombus in the right ventricle. The right ventricle is moderately dilated. Right ventricular systolic function is moderate to severely reduced. This is new compared to the previous study. Atria: The left atrium is not well visualized. Right atrium not well visualized. There is no Doppler evidence for an interatrial shunt. Mitral Valve: There is mild mitral annular calcification. The mitral valve leaflets appear mildly thickened, but open well. There is mild calcification extending into the subvalvular apparatus. No significant mitral valve stenosis. There is trace mitral regurgitation. This is unchanged compared to the previous study. Aortic Valve: The aortic valve is not well visualized. The aortic valve is grossly normal. The aortic valve is slightly calcified. The aortic valve opens well. There is no aortic valve stenosis. No aortic regurgitation is present. Tricuspid Valve: The tricuspid valve is not well visualized, but is grossly normal. There is mild tricuspid regurgitation. There is moderate pulmonary hypertension. The right ventricular systolic pressure is estimated at at least 47 mmHg assuming a right atrial pressure of 3 mm Hg. Comparison with the previous study is not possible because this was unable to be assessed on the previous study. Pulmonic Valve: The pulmonic valve is not well visualized. There is no other significant valvular heart disease. Great Vessels: The aortic root is normal size. The ascending aorta is normal in size. The IVC is of normal diameter and collapses less than 50% with a sniff. This suggests a right atrial pressure of 8 mm Hg. Pericardium/ Pleura There is no pericardial effusion. There is no pleural effusion. MMode/2D Measurements & Calculations LVIDd: 4.7 cm IVC diam: 1.1 cm RVDd minor LVOT diam LVIDs: 3.1 cm : 4.3 cm FS: 34.4 % AoV Opening EPSS: 0.79 cm IVSd: 1.1 cm Ao root diam LVPWd: 1.1 cm Aortic Jxn asc Aorta Diam LV green. diameter/BSA LV sys. diameter/BSA TAPSE (cm/m^2): 2.1 (cm/m^2): 1.4 : 2.0 cm Doppler Measurements & Calculations Ao V2 max MV E max david MV E/A: 0.62 TR max david : 139.7 cm/sec : 58.8 cm/sec Med Peak E' David : 330.2 cm/sec Ao max PG MV A max david TR max PG : 7.8 mmHg : 95.3 cm/sec E/E' med: 15.8 : 43.6 mmHg Ao mean PG MV P1/2t: 98.1 msec MV A dur: 0.12 sec PA V2 max : 35.1 cm/sec LVOT Max David PA mean PG : 97.4 cm/sec : 0.26 mmHg PA Accel Time ELIZABETH(I,D): 3.8 cm : 0.13 sec sev ratio MV dec time MV P1/2t max david Ao V2 mean LV V1 max PG : 0.33 sec : 82.8 cm/sec MVA(P1/2t): 2.2 cm2 Ao V2 VTI: 19.7 cm LV V1 VTI ELIZABETH(V,D): 2.7 cm2 : 18.8 cm PA V2 mean ELIZABETH indexed to BSA : 23.7 cm/sec (cm^2/m^2): 1.7 Reading Physician:01:51 PM
--- NOTE | 2016-09-27 19:33 | NUR ---
Orientation/sleep/CPaP Report at shift change stated that patient behavior demonstrated dementia or delirium characteristics. Upon assessment pt was Alert and Oriented x3, and has been appropriately behaved for the entire shift. Pt states that she did not sleep last night and has not been able to sleep all day. She states that her medication for Restless Leg Syndrome combined with pain medication usually knocks her out at night. Pt also states that she wears a CPAP machine at home for bedtime.
[2016-09-28] VITALS (9 sets, daily range): BP systolic 124–154; BP diastolic 57–91; PULSE 65–93; RESP 16–24; O2SAT 91–98
[2016-09-28] MEDS: Sodium Chloride LOK Flush 10 mL Syringe IVFLUSH SCH ×3 (00:59→16:30)
[2016-09-28] MEDS: Heparin 25K Unit/500mL 0.45 NS 25,000 UNIT in IV Premix 1 EACH IV SCH ×2 (02:47→19:48)
[2016-09-28 06:03] LABS: BASOPHILS % (AUTO) 0.7 % (0-3); EOSINOPHILS % (AUTO) 8.8 % (0-5); MONOCYTES % (AUTO) 7.5 % (4-12); Mean Corpuscular Hemoglobin 29.5 pg (27.0-35.0); Mean Corpuscular Volume 88.8 fL (81-100); NEUTROPHILS % (AUTO) 56.1 % (40-74); Platelet Count 146 bil/L (150-400)
[2016-09-28 07:09] LABS: INR 1.05 ratio
--- NOTE | 2016-09-28 07:18 | NUR ---
Mentation/Getting Up Pt A&Ox3 though forgetful overnight and very upset at start of shift because she did not have "shot" to sleep. Asked pt to have HS meds and see if they helped her sleep, pt was not upset anymore the rest of night. Pt denied pain throughout shift. O2 remains at 4L w/ sats mid 90s. Pt advised of reasoning she should remain on bedrest but pt adamant she could not use bedpan and would get up to BSC when she needed to go. Pt able to sit and stand self w/out staff assist.
--- NOTE | 2016-09-28 10:31 | NUR ---
[facility] Signed
--- NOTE | 2016-09-28 10:33 | NUR ---
Palliative care note D/A: Case discussed in both PC and dispo rounds. Medical team considering plan for dc home. PC provider notes significant concern regarding pt short term memory. Pt appears functional but lives alone. Medication compliance is believed to be poor but little information is known. Son is person of primary assistance to pt but lives in [facility]. He feels that pt is ok to go home. Note that pt is a readmission. His plan would be to have her go home and then consider SNF after next readmission, if indicated. Pt with bi-lat PE's. Will need anti-coagulation. Pt not capable of managing this and does not have assistance needed to be successful at this endeavor. PC recommending placement where pt would have 24/7 assistance with medications. Kevin Hopper to talk to hospitalist. This worker discusses with cydney Garner. P: Palliative care to follow. Kayla CHENG, CCM
--- NOTE | 2016-09-28 14:54 | NUR ---
Social Work: Continued Discharge Planning D: Pt discussed in morning rounds. Pt is not medically stable for discharge. Pt has baseline memory loss and there is concern for pt's med compliance. requesting TALENT BUYER run prescriptions through pt's preferred pharmacy- [facility]. TALENT BUYER faxed prescriptions to [phone]. MD states pt likely to be here 2-3 more days. TALENT BUYER met with pt and family at bedside (son and DIL). Pt and family expressing concerns about discharge home and would like to explore assisted living facilities. Family has questions whether pt is a good candidate for this at this time. Pt is currently a 1 person assist per care trends but medical staff coordinator states that she is able to move I. Family states that they have been looking at [facility]. TALENT BUYER requested that they pick a facility within the next 24 hours so that clinical information and a bedsdie assessment can be completed, prior to discharge. They will contact TALENT BUYER tomorrow with decision. Pt states she has no preference. A: Pt who is currently I but has baseline memory issues. P: Anticipate discharge to assisted living facility pending pt's family. TALENT BUYER to continue to follow and assist with dcp NELSON Castro
--- NOTE | 2016-09-28 14:54 | PCM.PALLBR ---
Palliative Care Recommendation Pleasant 80-year-old woman with long history of indolent metastatic endometrial cancer, now presenting with bilateral pulmonary emboli. Significant forgetfulness/dementia, per her son significantly exacerbated with hospitalization. Palliative medicine consulted to review goals of care. Summary of palliative recommendations: -Symptom management (Pain/other)- continue symptomatic management ordered by hospitalist. Continues on IV heparin at this time- her forgetfulness and anticipated difficulty taking medications properly at home will definitely have an impact on choice of long-term anticoagulation (her son thinks subcutaneous injections daily will not be possible). Patient expresses frustration at being bedbound. I have written orders for physical therapy evaluation to assess mobility etc. starting tomorrow by which time she will have had 3 days of anticoagulant therapy. -DPOA/Advanced Directives/POLST- DO NOT RESUSCITATE/DO NOT INTUBATE/limited interventions. Plan on completing new POLST prior to discharge if possible- patient is probably not decisional and so will try to complete with assistance of her son Gino who is her POA -Family/emotional support- her son has been very supportive. He and other family members are considering encouraging a transition to assisted living/SNF- this may be necessary in light of her additional new medications for treatment of her pulmonary emboli. Further conversations with case management/discharge planning in the coming days. Patient Goals: 1. Patient and family want to be told the truth about her illness, even if it is unpleasant. 2. Patient and family would like to be told prognosis when it can be predicted, to better guide treatment decisions. Additional Medical Diagnoses with primary management by Hospitalist team include : PE-patient on a heparin drip Restless leg syndrome Leg pain- Uterine cancer- Hypertension- Problems: End of Life Preferences DO NOT RESUSCITATE/DO NOT INTUBATE/limited interventions Goals of Care Patient prefers to return to her own home, though her viability there is becoming tenuous Disposition To be determined Resuscitation Status Resuscitation Status: DNR/DNI:Do Not Resuscitate/Intubate POLST Updates/Changes Previous POLST?: No . Pain: None Total time 35 minutes; >50% face to face with patient , providing counselling regarding plans and recommendations, and in care coordination with her medical teams. Palliative Brief Note Date of Service Sep 28, 2016 . Returned to reevaluate patient. Prior to visit him, reviewed her update her records in the EMR in detail and spoke with her bedside nurse. When I arrived, she was sleeping but awakened easily. Says that her chest pain has completely resolved. Denies any dyspnea, nausea or other symptoms. Remains very pleasant but very forgetful. She is eager to return home as soon as possible. Physical exam essentially stable. Vital signs noted. Skin warm and dry. Lungs clear but with diminished breath sounds diffusely, heart sounds are regular, abdomen obese, soft, nontender. Laboratory and imaging results reviewed in detail. Findings on echocardiogram noted. Flako Marlow MD Sep 28, 2016 14:54
--- NOTE | 2016-09-28 16:37 | PCM.PNMED ---
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 Hospital day #2. Overnight: There were no acute events. Patient had several anxious episodes with some agitation. The patient is resting in bed comfortably and in no acute distress. Was very pleasant this morning. She denies headache, cough, chest pain, abdominal pain, nausea, vomiting, fever, chills, dysuria, constipation or diarrhea. The patient is voiding and eliminating without difficulty. Exam Vital Signs Vital Sign - Last Date Time Temp Pulse Resp B/P Pulse Ox O2 Delivery O2 Flow Rate FiO2 09/28/16 11:40 36.8 68 20 124/64 97 Nasal Cannula 4.00 Intake and Output 09/27/16 09/27/16 09/28/16 Cumulative From/Thru 15:00 23:00 07:00 09/26/16 14:19 - 09/28/16 06:05 Intake Total 1594 ml 450 ml 3734 ml Output Total 1400 ml 500 ml 2100 ml Balance 194 ml -50 ml 1634 ml Intake Oral 1160 ml 450 ml 1910 ml IV Total 434 ml 1824 ml Output Urine Total 1400 ml 1600 ml Urine/Stool Mix 500 ml 500 ml # Bowel Movements 2 2 Exam General: Elderly female lying in bed and in no acute distress, appropriately interactive, severe dementia. HEENT: Normocephalic, atraumatic. External ears without defect. Pupils equal, round, and reactive to light. Anicteric sclerae, moist conjunctivae, and no lid lag. Oropharynx free of erythema and cobble stoning with moist mucosa. Neck: Supple with full range of motion. No jugular venous distension. No bruits. No lymphadenopathy or thyromegaly. Cardiovascular: Regular rate and rhythm with no murmurs, rubs, or gallops appreciated Pulmonary: Clear to auscultation bilaterally with no crackles, wheezes, or rhonchi. Normal respiratory effort with no use of accessory muscles. Abdomen: Soft, nontender, nondistended, bowel tones present. No hepatosplenomegaly or masses appreciated. Extremities: No clubbing, cyanosis, or edema. Skin: Normal temperature, turgor, and texture; no rash, ulcers, or subcutaneous nodules appreciated. Neurological: Severe dementia. Psychiatric: Normal mood and affect. . IVs and Medications Medications Reviewed: Medications were reviewed in detail Lab and Diagnostics Result Diagram: 09/28/1655409/28/16554 Microbiology Influenza screen negative. . X-Rays, CTs and MRIs X-RAY CHEST ONE VIEW, PORTABLE IMPRESSION: Cardiomegaly. No acute pulmonary process. Dictated by: Divine Baum M.D. on 09/26/2016 at 15:32 Approved by: Divine Baum M.D. on 09/26/2016 at 15:32 CT ANGIO CHEST PULMONARY EMBOLISM IMPRESSION: 1. Extensive central pulmonary embolism bilaterally. The result was discussed with Dr. Bhat prior to dictation. Dictated by: Fabrizio Broussard M.D. on 09/26/2016 at 18:29 Approved by: Fabrizio Broussard M.D. on 09/26/2016 at 18:29 CT ABDOMEN AND PELVIS WITH CONTRAST IMPRESSION: 1. A stent present in the rectosigmoid junction which is thickened. No evidence for bowel obstruction. 2. Stable peritoneal carcinomatosis. 3. Wide-necked ventral hernia. Dictated by: Fabrizio Broussard M.D. on 09/26/2016 at 18:24 Approved by: Fabrizio Broussard M.D. on 09/26/2016 at 18:24 US VENOUS LEG DUPLEX BILATERAL IMPRESSION: Bilateral nonocclusive deep venous thrombosis in the inferior portions of the superficial femoral veins and popliteal veins. No significant discrepancy with preliminary Nightshift report. Dictated by: Samuel oV M.D. on 09/27/2016 at 8:49 Approved by: Samuel Vo M.D. on 09/27/2016 at 8:49 . 12-lead ECG EKG: Sinus rhythm, heart rate 77, borderline ND intervals and QTc prolongation of 503 ms, nonspecific abnormalities in anterior leads with T wave flattening, no pathological q waves or acute ischemic changes such as ST elevation or depression. . Cardiac Echo Impressions Echocardiogram Interpretation Summary: Left ventricular systolic function is normal with the ejection fraction visually estimated to be 65-70% without focal wall motion abnormalities except for a flattened interventricular septum, consistent with a right ventricular pressure overload condition which is new compared to the previous study. Left ventricular wall thickness is mild-moderately increased with a relatively small left ventricular cavity and diastolic parameters suggesting a relaxation abnormality of the left ventricle, consistent with normal filling pressures which is unchanged compared to the previous study. The right ventricle is moderately dilated and right ventricular systolic function is moderate to severely reduced which is new compared to the previous study. There is likely at least moderate pulmonary hypertension with the right ventricular systolic pressure estimated to be at least 47 mmHg assuming a right atrial pressure of 3 mm Hg. Comparison with the previous study is not possible because this was unable to be assessed on the previous study. The atria are not well visualized. There is mild tricuspid regurgitation but no other significant valvular heart disease. Reading Physician:01:51 PM . 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 Hospital day #3. 1. Acute bilateral central pulmonary emboli, present on admission. Active. - CTA showed extensive central pulmonary embolism bilaterally. - Continue PE heparin gtt. - Consider discharging on Lovenox vs warfarin vs novel anticoagulant since her clot burden is secondary to malignancy. Will discuss with her oncologist/ chemical engineering intern Dr. Chowdhury. - Venous Doppler shows bilateral non-occlusive deep venous thrombosis in the inferior portions of the superficial femoral veins and popliteal veins, as above - Echocardiogram ordered to assess RVSP and grade the severity of clot burden, pending. - Strict bed rest in case of substantial enough clot burden and mobilizing anything may cause her to decompensate. - Awaiting preauthorization REGARDING Eliquist/pradaxa/xeralto. 2. Chronic Depression, present on admission. Active. - Palliative care was consulted for goals of care and symptom management. Chronic Problems: Chronic Restless leg syndrome, present on admission, Stable. - Admitting physician reported leg pain for which the patient denies today. - Continue pramipexole 0.25 mg daily before bedtime. - Continue hydrocodone 5-325 mg 1-2 tabs every four hours as needed for pain and morphine 1-2 mg IV as needed for severe pain pending palliative care recommendations. 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 - Recent peritoneal mets that caused rectosigmoid obstruction. - Continue Tamoxifen 20 mg twice daily. Chronic Hypertension, present on admission, Stable. - Continue lisinopril 10 mg daily. Chronic Dementia, present on admission, Stable. - Donepezil 5 mg daily before bedtime. - Continue ASA 325 mg daily. Chronic Hypothyroidism, present on admission, Stable. - Continue levothyroxine 200 mcg daily. PRN antiemetics: Zofran and Maalox. PRN bowel regimen: Senna and MiraLAX. PRN analgesics: Tylenol High risk medications: IV Heparin gtt. Disposition: Discharge back to [facility] when medical treated and ready. . Pain Evaluation: Adequate Pain Control VTE Prophylaxis: Other (Heparin gtt) Resuscitation Status: DNR/DNI:Do Not Resuscitate/Intubate Attending Statement The patient was seen and examined together with Dr. Swanson on 09-28-16 and I agree with the history, exam and plan as outlined in the note above. KRISTEN SWANSON DO Sep 28, 2016 14:51 Seth Devine MD Sep 29, 2016 12:29
--- NOTE | 2016-09-28 17:05 | NUR ---
O2/guaiac/POC The pt was able to come off O2 while awake with SATS holding in the low 90's. Some SOB noted on transfers to the [facility], but the pt states she feels "better than yesterday". Some arlene red blood was noted in some stool, and it was sent to the lab. The pt wants to DC to an assisted living facility, and social work is working on the plan.
--- NOTE | 2016-09-28 19:15 | PROG NOTE ---
[address] [address] PROGRESS NOTE PATIENT: PHILOMENA SIMMS : 1935 MR#: [id number] ADMIT: 09/26/2016 JOB ID: [id number] DATE: 09/28/2016 INPATIENT MEDICAL ONCOLOGY PROGRESS REPORT: DIAGNOSES: 1. Current admission for acute symptomatic bilateral pulmonary embolism, cancer related. 2. Metastatic endometrial ER positive adenocarcinoma, very indolent growth. 3. 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 HISTORY OF PRESENT ILLNESS: The patient was brought to hospital by her son two days ago due to progressively worsening exertional dyspnea, starting three days prior to arrival. She is on tamoxifen at high dose, which is a prothrombotic drug. CT chest angiogram was obtained on September 26 and is positive for extensive bilateral central pulmonary embolism. Filling defects are present in main pulmonary arteries and extend into the lobar and segmental arteries bilaterally. There was no evidence of pneumonia, adenopathy, or effusion. Doppler ultrasound of bilateral lower extremities is positive for nonocclusive bilateral DVT in the inferior portions of the superficial femoral veins and popliteal veins. She has been started on heparin drip. She has been started on warfarin as of yesterday. Given her dementia, she is not a candidate for Lovenox self injections at home. Today she was sitting on the bedside chair. She is currently resting comfortably in bed. She is agreeable to go to a nursing facility upon discharge. She has no specific complaints today. LABORATORY DATA: Currently CBC and basic metabolic profile are completely normal. ProBNP was elevated and troponin-T was positive. IMPRESSION AND PLAN: 1. Severe bilateral central acute pulmonary embolism, and bilateral acute lower extremity deep venous thrombosis. This patient will need to be on prolonged anticoagulation therapy, well beyond the standard six months. I agree that she is not a candidate for prolonged Lovenox self injections. Any of the novel anticoagulants would be easier for her, as long as her prescription drug coverage would cover it. Dr. Muro is working on this. 2. Advanced, but very slow, ER positive endometrial adenocarcinoma. Tamoxifen has been helping but will be contraindicated from this point on. Will leave that disease for her untreated. 3. Disposition. Upon discharge, she is agreeable to be discharged to a nursing facility and has asked her son to start looking into one.
[2016-09-28] MEDS: HYDROcodone-APAP 5-325 mg Tablet PO PRN (22:22)
[2016-09-29] VITALS (8 sets, daily range): BP systolic 127–144; BP diastolic 48–95; PULSE 64–85; RESP 16–20; O2SAT 92–96
[2016-09-29] MEDS: Sodium Chloride LOK Flush 10 mL Syringe IVFLUSH SCH ×3 (00:09→16:30)
[2016-09-29 03:07] LABS: Mean Corpuscular Hemoglobin 30.1 pg (27.0-35.0); Mean Corpuscular Volume 88.3 fL (81-100)
[2016-09-29 03:38] LABS: INR 1.1 ratio
[2016-09-29] MEDS: HYDROcodone-APAP 5-325 mg Tablet PO PRN ×2 (03:56→21:13)
--- NOTE | 2016-09-29 04:34 | NUR ---
PTT/Arlene Blood in Stool Pt's PTT at 0400 came back 56.5 so pt's heparin drip was increased to 16unit/kg/hr and the pt will have a Q6H PTT drawn at 1000. The next PTT draw has already been entered into the system. Pt had 2 small BMs tonight that were loose stool with arlene blood. MD was notified and said to keep an eye on VS to ensure that pt remains stable and if there is another BM with large amount of arlene blood to notify the MD of this. Pt did have a GUAIAC done on stool during dayshift and the results were negative for occult blood in those.
[2016-09-29] MEDS: Heparin 25K Unit/500mL 0.45 NS 25,000 UNIT in IV Premix 1 EACH IV SCH (11:30)
--- NOTE | 2016-09-29 12:35 | NUR ---
Social Work: Continued Discharge Planning D: Pt discussed in morning rounds. Pt is not medically stable for discharge at this time. STRAW HAT PRESSER received medication quotes from pt's preferred pharmacy; they state pt does not have medication coverage under her current plan and has been using their discount program. The private pay rates for the medications are as listed; made aware: Xarelto 15 mg $565.24 Xarelto 20 mg $403.74 Eloquis $534.64 Pradaxa $416.49 t/c to pt's son, Gino ) to discuss dcp and determine if he had located an [facility] that he would like clinical faxed to; [employer]ER would like to coordinate bedside assessment prior to weekend. Left message requesting return callback to discuss dcp. A: Pt who will require assisted living at time of discharge; pt not skillable for rehab P: Anticipate pt to discharge to Assisted Living pending family's decision about facility preference. STR[employer]AT PRESSER to continue to attempt contact with pt's son. NELSON Castro
--- NOTE | 2016-09-29 14:22 | PCM.PALLBR ---
Palliative Care Recommendation Pleasant 80-year-old woman with long history of indolent metastatic endometrial cancer, now presenting with bilateral pulmonary emboli. Significant forgetfulness/dementia, per her son significantly exacerbated with hospitalization. Palliative medicine consulted to review goals of care. Over the last 24 hours, patient now stating that she may not want to continue medical treatment of any sort. Will need to follow and assess the persistence of these feelings as well as reviewing it with her son/POA. Summary of palliative recommendations: -Symptom management (Pain/other)- continue symptomatic management ordered by hospitalist. Continues on IV heparin at this time- possible transition to Eliquis (versus other TSOAC) for long-term anticoagulation today or tomorrow once insurance coverage confirmed. -DPOA/Advanced Directives/POLST- DO NOT RESUSCITATE/DO NOT INTUBATE/comfort/ antibiotics OK/no artificial nutritional support. She is comfortable continuing medications she is currently using, but told me she did not want to return to the hospital again for further care. Her expressed wishes for care have varied somewhat during hospitalization, and will need to be reviewed and confirmed in the coming weeks with her and her son. For now, new POLST completed reflecting her current wishes. -Family/emotional support- her son has been very supportive. He and other family members are considering encouraging a transition to assisted living/SNF. Patient Goals: 1. Patient and family want to be told the truth about her illness, even if it is unpleasant. 2. Patient and family would like to be told prognosis when it can be predicted, to better guide treatment decisions. Additional Medical Diagnoses with primary management by Hospitalist team include : PE-patient on a heparin drip Restless leg syndrome Leg pain- Uterine cancer- Hypertension- Problems: End of Life Preferences DO NOT RESUSCITATE/DO NOT INTUBATE/limited interventions Goals of Care Now looking toward DC to SNF/AL Disposition To be determined Resuscitation Status Resuscitation Status: DNR/DNI:Do Not Resuscitate/Intubate POLST Updates/Changes Previous POLST?: No POLST Review Outcome: New Form Completed . Advanced Care Planning Address: POLST Pain: None Total time 60 minutes across 2 visits; >50% face to face with patient , providing counselling regarding plans and recommendations, and in care coordination with her medical teams. Of the above total time, 30 minutes counseling for advanced care planning with the patient completing new POLST Palliative Brief Note Date of Service Sep 29, 2016 . When I came to visit, she was up walking the halls with physical therapy. Tolerating activity well with no significant desaturations. Prior to visiting, I reviewed updated notes in the EMR and spoke with her medical/hospitalist. Dr. Chowdhury's note reviewed and his input much appreciated. I relayed his recommendations to the resident. She denies any remaining chest pain, at rest or with deep inspiration. No nausea or other symptoms. Family is working with case management/discharge planning- patient now seems willing to possibly go to a care facility (which would be better than her trying to be home alone). Physical exam remains stable/unchanged. Spoke later with physical therapist- he noted that she did well with ambulation but that she was telling him that she might want to discontinue all of her medications and be allowed to pass away. Later in the day, I spoke with her resident team and they reported similar comments. When I had been reviewing and completing a new POLST with the patient, she had told me she did not want to come back to the hospital but that she was willing to continue with routine medications. Flako Marlow MD Sep 29, 2016 10:14
--- NOTE | 2016-09-29 19:12 | NUR ---
Bloody stool Pt. had very small BM today that was bloody. MD notified and aware. Continuing to monitor vitals and signs of bleeding.
--- NOTE | 2016-09-29 20:50 | PCM.PNMED ---
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 Hospital day #2. Overnight: Ms. Cyndee Ware had 2 episodes of small streak of bright red blood in her stool. HH stable overnight. The patient is resting in bed comfortably and in no acute distress. Was very pleasant this morning. She denies headache, cough, chest pain, abdominal pain, nausea, vomiting, fever, chills, dysuria, constipation or diarrhea. The patient is voiding and eliminating without difficulty. Exam Vital Signs Vital Sign - Last Date Time Temp Pulse Resp B/P Pulse Ox O2 Delivery O2 Flow Rate FiO2 09/29/16 04:29 79 09/29/16 03:35 36.4 18 141/91 96 Room Air 09/28/16 11:40 4.00 Intake and Output 09/28/16 09/28/16 09/29/16 Cumulative From/Thru 15:00 23:00 07:00 09/26/16 14:19 - 09/29/16 05:33 Intake Total 392 ml 888 ml 1147 ml 6161 ml Output Total 900 ml 951 ml 3951 ml Balance 392 ml -12 ml 196 ml 2210 ml Intake Oral 540 ml 830 ml 3280 ml IV Total 392 ml 348 ml 317 ml 2881 ml Output Urine Total 900 ml 950 ml 3450 ml Urine/Stool Mix 1 ml 501 ml # Bowel Movements 2 Exam General: Elderly female lying in bed and in no acute distress, appropriately interactive, severe dementia. HEENT: Normocephalic, atraumatic. External ears without defect. Pupils equal, round, and reactive to light. Anicteric sclerae, moist conjunctivae, and no lid lag. Oropharynx free of erythema and cobble stoning with moist mucosa. Neck: Supple with full range of motion. No jugular venous distension. No bruits. No lymphadenopathy or thyromegaly. Cardiovascular: Regular rate and rhythm with no murmurs, rubs, or gallops appreciated Pulmonary: Clear to auscultation bilaterally with no crackles, wheezes, or rhonchi. Normal respiratory effort with no use of accessory muscles. Abdomen: Soft, nontender, nondistended, bowel tones present. No hepatosplenomegaly or masses appreciated. Extremities: No clubbing, cyanosis, or edema. Skin: Normal temperature, turgor, and texture; no rash, ulcers, or subcutaneous nodules appreciated. Neurological: Severe dementia. Psychiatric: Normal mood and affect. . IVs and Medications Medications Reviewed: Medications were reviewed in detail Lab and Diagnostics Result Diagram: 09/29/1624909/29/16249 Microbiology Influenza screen negative. . X-Rays, CTs and MRIs X-RAY CHEST ONE VIEW, PORTABLE IMPRESSION: Cardiomegaly. No acute pulmonary process. Dictated by: Divine Baum M.D. on 09/26/2016 at 15:32 Approved by: Divine Baum M.D. on 09/26/2016 at 15:32 CT ANGIO CHEST PULMONARY EMBOLISM IMPRESSION: 1. Extensive central pulmonary embolism bilaterally. The result was discussed with Dr. Bhat prior to dictation. Dictated by: Fabrizio Broussard M.D. on 09/26/2016 at 18:29 Approved by: Fabrizio Broussard M.D. on 09/26/2016 at 18:29 CT ABDOMEN AND PELVIS WITH CONTRAST IMPRESSION: 1. A stent present in the rectosigmoid junction which is thickened. No evidence for bowel obstruction. 2. Stable peritoneal carcinomatosis. 3. Wide-necked ventral hernia. Dictated by: Fabrizio Broussard M.D. on 09/26/2016 at 18:24 Approved by: Fabrizio Broussard M.D. on 09/26/2016 at 18:24 US VENOUS LEG DUPLEX BILATERAL IMPRESSION: Bilateral nonocclusive deep venous thrombosis in the inferior portions of the superficial femoral veins and popliteal veins. No significant discrepancy with preliminary [facility] report. Dictated by: Samuel Vo M.D. on 09/27/2016 at 8:49 Approved by: Samuel Vo M.D. on 09/27/2016 at 8:49 . 12-lead ECG EKG: Sinus rhythm, heart rate 77, borderline IA intervals and QTc prolongation of 503 ms, nonspecific abnormalities in anterior leads with T wave flattening, no pathological q waves or acute ischemic changes such as ST elevation or depression. . Cardiac Echo Impressions Echocardiogram Interpretation Summary: Left ventricular systolic function is normal with the ejection fraction visually estimated to be 65-70% without focal wall motion abnormalities except for a flattened interventricular septum, consistent with a right ventricular pressure overload condition which is new compared to the previous study. Left ventricular wall thickness is mild-moderately increased with a relatively small left ventricular cavity and diastolic parameters suggesting a relaxation abnormality of the left ventricle, consistent with normal filling pressures which is unchanged compared to the previous study. The right ventricle is moderately dilated and right ventricular systolic function is moderate to severely reduced which is new compared to the previous study. There is likely at least moderate pulmonary hypertension with the right ventricular systolic pressure estimated to be at least 47 mmHg assuming a right atrial pressure of 3 mm Hg. Comparison with the previous study is not possible because this was unable to be assessed on the previous study. The atria are not well visualized. There is mild tricuspid regurgitation but no other significant valvular heart disease. Reading Physician:01:51 PM . 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 Hospital day #3. 1. Acute bilateral central pulmonary emboli, present on admission. Active. - CTA showed extensive central pulmonary embolism bilaterally. - Continue PE heparin gtt. - Consider discharging on Lovenox vs warfarin vs novel anticoagulant since her clot burden is secondary to malignancy. Will discuss with her oncologist/ hydro generation supervisor Dr. Chowdhury. - Venous Doppler shows bilateral non-occlusive deep venous thrombosis in the inferior portions of the superficial femoral veins and popliteal veins, as above - Echocardiogram ordered to assess RVSP and grade the severity of clot burden, pending. - Strict bed rest in case of substantial enough clot burden and mobilizing anything may cause her to decompensate. - Informed today that patient does not have prescription drug coverage. She needs Eliquist or pradaxa or xeralto as an outpatient. the legal coordinator prefers Eliquist. The self payer prices are Eliquist 534.64$, Predaxa 416.49$, Xeralto 20 mg 403.74$, 15 mg 565.24$. She refuses lovenox shots at home. - Will start Lovenox at therapeutic dose BID tomorrow. 2. Chronic Depression, present on admission. Active. - Palliative care was consulted for goals of care and symptom management. - She expressed today that she wants us to let her . Dr. Marlow heard similar story as well. Her son Gino, who is next of kin was not available to talk today after several attempts to contact him. Plan to schedule a family meeting with palliative, hospitalist, and patient to discuss goals of care. Chronic Problems: Chronic Restless leg syndrome, present on admission, Stable. - Admitting physician reported leg pain for which the patient denies today. - Continue pramipexole 0.25 mg daily before bedtime. - Continue hydrocodone 5-325 mg 1-2 tabs every four hours as needed for pain and morphine 1-2 mg IV as needed for severe pain pending palliative care recommendations. 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 - Recent peritoneal mets that caused rectosigmoid obstruction. - Continue Tamoxifen 20 mg twice daily. Chronic Hypertension, present on admission, Stable. - Continue lisinopril 10 mg daily. Chronic Dementia, present on admission, Stable. - Donepezil 5 mg daily before bedtime. - Continue ASA 325 mg daily. Chronic Hypothyroidism, present on admission, Stable. - Continue levothyroxine 200 mcg daily. PRN antiemetics: Zofran and Maalox. PRN bowel regimen: Senna and MiraLAX. PRN analgesics: Tylenol High risk medications: IV Heparin gtt. Disposition: Discharge back to [facility] when medical treated and ready. . Pain Evaluation: Adequate Pain Control VTE Prophylaxis: Other (Heparin gtt) VTE Mechanical Devices: Intermittant Pneumatic CD Resuscitation Status: DNR/DNI:Do Not Resuscitate/Intubate Attending Statement The patient was seen and examined together with Dr. Swanson on 09-29-16 and I agree with the history, exam and plan as outlined in the note above. KRISTEN SWANSON DO Sep 29, 2016 06:46 Seth Devine MD Sep 30, 2016 15:18
[2016-09-30] VITALS (8 sets, daily range): BP systolic 119–147; BP diastolic 57–82; PULSE 59–78; RESP 16–24; O2SAT 91–96
[2016-09-30] MEDS: Sodium Chloride LOK Flush 10 mL Syringe IVFLUSH SCH ×3 (01:07→17:01)
[2016-09-30] MEDS: Heparin 25K Unit/500mL 0.45 NS 25,000 UNIT in IV Premix 1 EACH IV SCH ×2 (01:11→17:50)
[2016-09-30 03:51] LABS: Mean Corpuscular Hemoglobin 29.4 pg (27.0-35.0); Mean Corpuscular Volume 88.8 fL (81-100)
[2016-09-30 04:14] LABS: INR 1.47 ratio
--- NOTE | 2016-09-30 06:45 | NUR ---
Pain/Rest Pt c/o pain and feeling restless. Pt c/o pain 2/10 and 4mg morphine IVP did not touch the pain and made the pt begin to feel restless. Pt said that they did not sleep much. Pt may need something for sleep to be added to the eMAR.
--- NOTE | 2016-09-30 15:13 | NUR ---
Social Work Continued Discharge Planning D: Pt is ond ay 4 of hospitalization for bilateral PE. Pt discussed in morning rounds. Pt likely ready for discharge in a day or 2. Hospitalist awaiting co-pay information provided in last SW note. SW contacted Pt's son and DIL and discussed prescription coverage. YANIRA faxed copies of Pt's insurance card to [facility] [employer] (provided by Pt's DIL via email) and requested to rerun/contact [facility] pharmacy. [facility] pharmacy confirmed with [facility] that Pt does not have any prescription medication coverage. The medications recommended for Pt are below. The private pay rates for the medications are as listed; made aware: Xarelto 15 mg $565.24 Xarelto 20 mg $403.74 Eloquis $534.64 Pradaxa $416.49 SW spoke with Hospitalist who reports oncology, Dr. Reid is okay with Warfarin/Lovenox. Warfarin would require frequent blood monitoring and cost about $4/month and Lovenox would require 2 injections per day and likely a couple hundred dollars per month. Pt reported to hospitalist she does not want to spend her last dollars on high cost medications. Pt does not wish to have multiple lab draws/sticks/injections. Hospitalist reports she will be meeting with family when they arrive to hospital to discuss options. YANIRA spoke with Pt's son Gino [phone] and daughter in law who continue to search for an assisted living facility for the Pt. They have not yet found a facility to refer to but understand if Pt is medically ready before one is found they will take Pt to her home and provide care for her. PT worked with Pt and is recommending Home Health at discharge. Pt walking 400ft. PT therapist reports Pt is not interested in HH services. A: Pt who could benefit from HH, Assisted Living or 24/7 care. P: Anticipate pt to discharge to Assisted Living or home with family to provide 24/7 care. Cost effective medication management to be determined by hospitalist and Pt's preference for treatment. SW will need to follow up and offer Home Health Choice if Pt agreeable. YANIRA following NELSON Saunders
--- NOTE | 2016-09-30 15:40 | NUR ---
[facility] signed
--- NOTE | 2016-09-30 18:30 | PCM.PNMED ---
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 Hospital day #5. Overnight: There were no acute events. Telemetry overnight: Sinus rhythm, heart rate 60s to 80s, with first degree AV block and occasional PVCs. Patient resting in bed comfortably and in no acute distress. She reports that she is eager to . She has no complaints overall. She denies headache, chest pain, shortness of breath, palpitation, abdominal pain, nausea, vomiting, fever, chills, dysuria, diarrhea or constipation. She has normal appetite. She is voiding and eliminating without difficulty. She is up and bleeding within the room. . Exam Vital Signs Vital Sign - Last Date Time Temp Pulse Resp B/P Pulse Ox O2 Delivery O2 Flow Rate FiO2 09/30/16 15:27 36.8 59 18 136/76 96 Room Air 09/28/16 11:40 4.00 Intake and Output 09/29/16 09/29/16 09/30/16 Cumulative From/Thru 15:00 23:00 07:00 09/26/16 14:19 - 09/30/16 06:44 Intake Total 978 ml 596 ml 7735 ml Output Total 1000 ml 650 ml 5601 ml Balance -22 ml -54 ml 2134 ml Intake Oral 520 ml 200 ml 4000 ml IV Total 458 ml 396 ml 3735 ml Output Urine Total 1000 ml 500 ml 4950 ml Stool Total 150 ml 150 ml Urine/Stool Mix 501 ml # Bowel Movements 2 4 Exam General: Elderly female lying in bed and in no acute distress, appropriately interactive, severe dementia. HEENT: Normocephalic, atraumatic. External ears without defect. Pupils equal, round, and reactive to light. Anicteric sclerae, moist conjunctivae, and no lid lag. Oropharynx free of erythema and cobble stoning with moist mucosa. Neck: Supple with full range of motion. No jugular venous distension. No bruits. No lymphadenopathy or thyromegaly. Cardiovascular: Regular rate and rhythm with no murmurs, rubs, or gallops appreciated Pulmonary: Clear to auscultation bilaterally with no crackles, wheezes, or rhonchi. Normal respiratory effort with no use of accessory muscles. Abdomen: Soft, nontender, nondistended, bowel tones present. No hepatosplenomegaly or masses appreciated. Extremities: No clubbing, cyanosis, or edema. Skin: Normal temperature, turgor, and texture; no rash, ulcers, or subcutaneous nodules appreciated. Neurological: Severe dementia. Psychiatric: Depressed mood and affect. . IVs and Medications Medications Reviewed: Medications were reviewed in detail Lab and Diagnostics Result Diagram: 09/30/1631409/30/16314 Microbiology Influenza screen negative. . X-Rays, CTs and MRIs X-RAY CHEST ONE VIEW, PORTABLE IMPRESSION: Cardiomegaly. No acute pulmonary process. Dictated by: Divine Buam M.D. on 09/26/2016 at 15:32 Approved by: Divine Baum M.D. on 09/26/2016 at 15:32 CT ANGIO CHEST PULMONARY EMBOLISM IMPRESSION: 1. Extensive central pulmonary embolism bilaterally. The result was discussed with Dr. Bhat prior to dictation. Dictated by: Fabrizio Broussard M.D. on 09/26/2016 at 18:29 Approved by: Fabrizio Broussard M.D. on 09/26/2016 at 18:29 CT ABDOMEN AND PELVIS WITH CONTRAST IMPRESSION: 1. A stent present in the rectosigmoid junction which is thickened. No evidence for bowel obstruction. 2. Stable peritoneal carcinomatosis. 3. Wide-necked ventral hernia. Dictated by: Fabrizio Broussard M.D. on 09/26/2016 at 18:24 Approved by: Fabrizio Broussard M.D. on 09/26/2016 at 18:24 US VENOUS LEG DUPLEX BILATERAL IMPRESSION: Bilateral nonocclusive deep venous thrombosis in the inferior portions of the superficial femoral veins and popliteal veins. No significant discrepancy with preliminary [facility] report. Dictated by: Samuel Vo M.D. on 09/27/2016 at 8:49 Approved by: Samuel Vo M.D. on 09/27/2016 at 8:49 . 12-lead ECG EKG: Sinus rhythm, heart rate 77, borderline NV intervals and QTc prolongation of 503 ms, nonspecific abnormalities in anterior leads with T wave flattening, no pathological q waves or acute ischemic changes such as ST elevation or depression. . Cardiac Echo Impressions Echocardiogram Interpretation Summary: Left ventricular systolic function is normal with the ejection fraction visually estimated to be 65-70% without focal wall motion abnormalities except for a flattened interventricular septum, consistent with a right ventricular pressure overload condition which is new compared to the previous study. Left ventricular wall thickness is mild-moderately increased with a relatively small left ventricular cavity and diastolic parameters suggesting a relaxation abnormality of the left ventricle, consistent with normal filling pressures which is unchanged compared to the previous study. The right ventricle is moderately dilated and right ventricular systolic function is moderate to severely reduced which is new compared to the previous study. There is likely at least moderate pulmonary hypertension with the right ventricular systolic pressure estimated to be at least 47 mmHg assuming a right atrial pressure of 3 mm Hg. Comparison with the previous study is not possible because this was unable to be assessed on the previous study. The atria are not well visualized. There is mild tricuspid regurgitation but no other significant valvular heart disease. Reading Physician:01:51 PM . 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 Hospital day #5. 1. Acute bilateral central pulmonary emboli, present on admission. Active. - CTA showed extensive central pulmonary embolism bilaterally. - Continue PE heparin gtt. - Venous Doppler shows bilateral non-occlusive deep venous thrombosis in the inferior portions of the superficial femoral veins and popliteal veins, as above - Echocardiogram as above. - Limited mobilization as she has extensive clot burden and mobilization may cause her to decompensate. - Informed the that she does not have prescription drug coverage. Per her oncologist, Dr. Chowdhury, the patient can discharge on warfarin, Lovenox, or any of the novel anti-coagulants. - The self payer prices are Eliquis 534.64$, Pradaxa 416.49$, Xarelto 20 mg 403.74$, 15 mg 565.24$. - Family to consider options and will make decision in near future. 2. Chronic depression, present on admission. Active. - Palliative care was consulted for goals of care and symptom management. - She expressed today that she wants us to let her . Dr. Marlow heard similar story as well. Her son Gino, who is next of kin was not available to talk today after several attempts to contact him. Plan to schedule a family meeting with palliative, hospitalist, and patient to discuss goals of care. Chronic Problems: Chronic restless leg syndrome, present on admission, Stable. - Admitting physician reported leg pain for which the patient denies today. - Continue pramipexole 0.25 mg daily before bedtime. - Continue hydrocodone 5-325 mg 1-2 tabs every four hours as needed for pain and morphine 1-2 mg IV as needed for severe pain pending palliative care recommendations. 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 - Recent peritoneal mets that caused rectosigmoid obstruction. - Continue Tamoxifen 20 mg twice daily. Chronic hypertension, present on admission, Stable. - Continue lisinopril 10 mg daily. Chronic dementia, present on admission, Stable. - Donepezil 5 mg daily before bedtime. - Continue ASA 325 mg daily. Chronic hypothyroidism, present on admission, Stable. - Continue levothyroxine 200 mcg daily. PRN antiemetics: Zofran and Maalox. PRN bowel regimen: Senna and MiraLAX. PRN analgesics: Tylenol High risk medications: IV Heparin gtt. Disposition: Discharge back to [facility] community when medical treated and ready. . VTE Prophylaxis: Other (Heparin gtt) VTE Mechanical Devices: Intermittant Pneumatic CD Resuscitation Status: DNR/DNI:Do Not Resuscitate/Intubate Attending Statement The patient was seen and examined together with Dr. Chung on 09-30-16 and I agree with the history, exam and plan as outlined in the note above. Bernadine Chung DO Sep 30, 2016 18:30 Seth Devine MD Oct 01, 2016 08:31
--- NOTE | 2016-09-30 19:32 | NUR ---
BM Pt on heparin gtt and having scant mucousy/bloody stools per report, Pt had loosely formed BM X2 today with no arlene blood visible, guaiac sample sent. Pt therapeutic on heparin gtt, f/u PTT ordered for 1700 per protocol, had not been drawn prior to shift change, lab called, matthew HERNANDEZ RN made aware.
[2016-10-01] VITALS (8 sets, daily range): BP systolic 128–135; BP diastolic 60–76; PULSE 55–67; RESP 16–20; O2SAT 92–98
[2016-10-01] MEDS: Sodium Chloride LOK Flush 10 mL Syringe IVFLUSH SCH ×3 (00:02→16:21)
[2016-10-01] MEDS ORDERED: hydrOXYzine Pamoate 25 mg Capsule PO ONE ×2 (01:00→22:10)
[2016-10-01 03:05] LABS: BASOPHILS % (AUTO) 0.7 % (0-3); EOSINOPHILS % (AUTO) 8.9 % (0-5); MONOCYTES % (AUTO) 9.4 % (4-12); Mean Corpuscular Hemoglobin 29.8 pg (27.0-35.0); Mean Corpuscular Volume 89.1 fL (81-100); NEUTROPHILS % (AUTO) 51.7 % (40-74); Platelet Count 207 bil/L (150-400)
[2016-10-01 03:21] LABS: INR 1.17 ratio
--- NOTE | 2016-10-01 03:34 | NUR ---
Insomnia: Pt. complaining of difficulty sleeping during previous nights during hospitalization. Pt. requesting "something for sleep". Physician notified of findings, orders received for one time dose of Melatonin. Melatonin administered to pt., upon reassessment, pt. found to be awake in room and states "the melatonin didn't help". Physician notified of findings, orders received to administer one time dose of Vistaril. One time dose of Vistaril administered, upon reassessment, pt. found to be sleeping soundly in bed.
[2016-10-01] MEDS: Heparin 25K Unit/500mL 0.45 NS 25,000 UNIT in IV Premix 1 EACH IV SCH (10:12)
--- NOTE | 2016-10-01 17:12 | PCM.PNMED ---
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 Hospital day #5. Overnight: Complaining of insomnia and boredom. Patient resting in bed comfortably and in no acute distress. She reports that she is eager to . She has no complaints overall. She denies headache, chest pain, shortness of breath, palpitation, abdominal pain, nausea, vomiting, fever, chills, dysuria, diarrhea or constipation. She has normal appetite. She is voiding and eliminating without difficulty. She is up and bleeding within the room. . Exam Vital Signs Vital Sign - Last Date Time Temp Pulse Resp B/P Pulse Ox O2 Delivery O2 Flow Rate FiO2 10/01/16 04:14 36.8 66 16 135/68 92 Room Air 09/28/16 11:40 4.00 Intake and Output 09/30/16 09/30/16 10/01/16 Cumulative From/Thru 15:00 23:00 07:00 09/26/16 14:19 - 10/01/16 06:03 Intake Total 1183 ml 664 ml 9582 ml Output Total 100 ml 750 ml 6451 ml Balance 1083 ml -86 ml 3131 ml Intake Oral 800 ml 300 ml 5100 ml IV Total 383 ml 364 ml 4482 ml Output Urine Total 100 ml 200 ml 5250 ml Stool Total 150 ml Urine/Stool Mix 550 ml 1051 ml # Voids 3 3 6 # Bowel Movements 1 5 Exam General: Elderly female lying in bed and in no acute distress, appropriately interactive, severe dementia. HEENT: Normocephalic, atraumatic. External ears without defect. Pupils equal, round, and reactive to light. Anicteric sclerae, moist conjunctivae, and no lid lag. Oropharynx free of erythema and cobble stoning with moist mucosa. Neck: Supple with full range of motion. No jugular venous distension. No bruits. No lymphadenopathy or thyromegaly. Cardiovascular: Regular rate and rhythm with no murmurs, rubs, or gallops appreciated Pulmonary: Clear to auscultation bilaterally with no crackles, wheezes, or rhonchi. Normal respiratory effort with no use of accessory muscles. Abdomen: Soft, nontender, nondistended, bowel tones present. No hepatosplenomegaly or masses appreciated. Extremities: No clubbing, cyanosis, or edema. Skin: Normal temperature, turgor, and texture; no rash, ulcers, or subcutaneous nodules appreciated. Neurological: Severe dementia. Psychiatric: Depressed mood and affect. . IVs and Medications Medications Reviewed: Medications were reviewed in detail Lab and Diagnostics Result Diagram: 10/01/1625410/01/16254 Microbiology Influenza screen negative. . X-Rays, CTs and MRIs X-RAY CHEST ONE VIEW, PORTABLE IMPRESSION: Cardiomegaly. No acute pulmonary process. Dictated by: Divine Baum M.D. on 09/26/2016 at 15:32 Approved by: Divine Baum M.D. on 09/26/2016 at 15:32 CT ANGIO CHEST PULMONARY EMBOLISM IMPRESSION: 1. Extensive central pulmonary embolism bilaterally. The result was discussed with Dr. Bhat prior to dictation. Dictated by: Fabrizio Broussard M.D. on 09/26/2016 at 18:29 Approved by: Fabrizio Broussard M.D. on 09/26/2016 at 18:29 CT ABDOMEN AND PELVIS WITH CONTRAST IMPRESSION: 1. A stent present in the rectosigmoid junction which is thickened. No evidence for bowel obstruction. 2. Stable peritoneal carcinomatosis. 3. Wide-necked ventral hernia. Dictated by: Fabrizio Broussard M.D. on 09/26/2016 at 18:24 Approved by: Fabrizio Broussard M.D. on 09/26/2016 at 18:24 US VENOUS LEG DUPLEX BILATERAL IMPRESSION: Bilateral nonocclusive deep venous thrombosis in the inferior portions of the superficial femoral veins and popliteal veins. No significant discrepancy with preliminary [facility] report. Dictated by: Samuel Vo M.D. on 09/27/2016 at 8:49 Approved by: Samuel Vo M.D. on 09/27/2016 at 8:49 . 12-lead ECG EKG: Sinus rhythm, heart rate 77, borderline NE intervals and QTc prolongation of 503 ms, nonspecific abnormalities in anterior leads with T wave flattening, no pathological q waves or acute ischemic changes such as ST elevation or depression. . Cardiac Echo Impressions Echocardiogram Interpretation Summary: Left ventricular systolic function is normal with the ejection fraction visually estimated to be 65-70% without focal wall motion abnormalities except for a flattened interventricular septum, consistent with a right ventricular pressure overload condition which is new compared to the previous study. Left ventricular wall thickness is mild-moderately increased with a relatively small left ventricular cavity and diastolic parameters suggesting a relaxation abnormality of the left ventricle, consistent with normal filling pressures which is unchanged compared to the previous study. The right ventricle is moderately dilated and right ventricular systolic function is moderate to severely reduced which is new compared to the previous study. There is likely at least moderate pulmonary hypertension with the right ventricular systolic pressure estimated to be at least 47 mmHg assuming a right atrial pressure of 3 mm Hg. Comparison with the previous study is not possible because this was unable to be assessed on the previous study. The atria are not well visualized. There is mild tricuspid regurgitation but no other significant valvular heart disease. Reading Physician:01:51 PM . 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 Hospital day #5. 1. Acute bilateral central pulmonary emboli, present on admission. Active. - CTA showed extensive central pulmonary embolism bilaterally. - Continue PE heparin gtt. - Venous Doppler shows bilateral non-occlusive deep venous thrombosis in the inferior portions of the superficial femoral veins and popliteal veins, as above - Echocardiogram as above. - Limited mobilization as she has extensive clot burden and mobilization may cause her to decompensate. - Does NOT have prescription drug coverage. Per her oncologist, Dr. Chowdhury, the patient can discharge on warfarin, Lovenox, or any of the novel anti- coagulants. - The self payer prices are Eliquis 534.64$, Pradaxa 416.49$, Xarelto 20 mg 403.74$, 15 mg 565.24$. - Family to consider options and will make decision in near future. - Will offer family and patient Lovenox bridge (Which patient refused 2 days ago ) or Warfarin at home. Consider INR must be therapeutic for 24 hours before discharge... INR (10/01/16) 1.17 2. Chronic depression, present on admission. Active. - Palliative care was consulted for goals of care and symptom management. - She expressed today that she wants us to let her . Dr. Marlow heard similar story as well. Her son Gino, who is next of kin was not available to talk today after several attempts to contact him. Plan to schedule a family meeting with palliative, hospitalist, and patient to discuss goals of care. - May need antidepressants as outpatient. Chronic Problems: Chronic restless leg syndrome, present on admission, Stable. - Admitting physician reported leg pain for which the patient denies today. - Continue pramipexole 0.25 mg daily before bedtime. - Continue hydrocodone 5-325 mg 1-2 tabs every four hours as needed for pain and morphine 1-2 mg IV as needed for severe pain pending palliative care recommendations. 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 - Recent peritoneal mets that caused rectosigmoid obstruction. - Continue Tamoxifen 20 mg twice daily. Chronic hypertension, present on admission, Stable. - Continue lisinopril 10 mg daily. Chronic dementia, present on admission, Stable. - Donepezil 5 mg daily before bedtime. - Continue ASA 325 mg daily. Chronic hypothyroidism, present on admission, Stable. - Continue levothyroxine 200 mcg daily. PRN antiemetics: Zofran and Maalox. PRN bowel regimen: Senna and MiraLAX. PRN analgesics: Tylenol High risk medications: IV Heparin gtt. Warfarin. Disposition: Discharge either home with family or Assisted living. Family meeting early this week to discuss goals of care again. . Pain Evaluation: Adequate Pain Control VTE Prophylaxis: Other (Heparin gtt) VTE Mechanical Devices: Intermittant Pneumatic CD Resuscitation Status: DNR/DNI:Do Not Resuscitate/Intubate Attending Statement The patient was seen and examined together with Dr. Swanson on 10-01-16 and I agree with the history, exam and plan as outlined in the note above. KRISTEN SWANSON DO Oct 01, 2016 08:05 Seth Devine MD Oct 02, 2016 16:01
--- NOTE | 2016-10-01 17:49 | NUR ---
BM Pt. states having diarrhea every 20min, stools are light brown with a slight light redness look to them in AM. Guaiac was sent to lab. Afternoon stools looked more formed and the slight light redness look to them diminished as well. Pt is in bed eating dinner with no complaints at this time.
--- NOTE | 2016-10-01 22:03 | PCM.CONPHA ---
Objective Vital Signs Date Time Temp Pulse Resp B/P Pulse Ox O2 Delivery O2 Flow Rate FiO2 10/01/16 20:19 36.7 55 20 131/63 98 Room Air 10/01/16 16:25 36.6 60 18 133/61 92 Room Air 10/01/16 15:33 Room Air 10/01/16 12:06 36.5 67 20 128/60 95 Room Air 10/01/16 09:58 67 10/01/16 09:25 36.6 62 16 135/76 92 Room Air 10/01/16 04:14 36.8 66 16 135/68 92 Room Air 10/01/16 02:57 66 09/30/16 23:42 36.9 69 16 135/73 91 Room Air 09/30/16 22:53 36.8 Intake and Output 09/29/16 09/30/16 10/01/16 00:00 00:00 00:00 Intake Total 1730 ml 2125 ml 1779 ml Output Total 1400 ml 1951 ml 750 ml Balance 330 ml 174 ml 1029 ml Weight (Kilograms): 111.900 Height (Feet): 5 Height (Inches): 8.00 Test 09/26/16 15:31 09/27/16 05:48 09/27/16 10:47 09/29/16 02:50 D-Dimer 5.1mg/L (<0.50) Magnesium Level 2.1mg/dL (1.6-2.6) Total Bilirubin 0.3mg/dL (0.0-1.2) Aspartate Amino Transf (AST/SGOT) 37U/L (0-50) Alanine Aminotransferase (ALT/SGPT) 33U/L (0-32) Alkaline Phosphatase 56U/L (25-165) Pro-B-Type Natriuretic Peptide 7516pg/mL (0-738) Total Protein 6.6g/dL (6.4-8.4) Albumin 3.7g/dL (3.4-5.0) Hold Harper Top Tube Received (Received) Troponin T 0.013ug/L (0.0-0.011) Urine Color Straw (YELLOW) Urine Appearance Hazy (CLEAR,HAZY) Urine pH 5.5 (5.0-8.0) Urine Specific [place] 1.010 (1.003-1.035) Urine Protein Negativemg/dL (NEG,TRACE) Urine Glucose (UA) Negativemg/dL (NEGATIVE) Urine Ketones Negativemg/dL (NEGATIVE) Urine Occult Blood Negative (NEGATIVE) Urine Nitrite Negative (NEGATIVE) Urine Bilirubin Negative (NEGATIVE) Urine Urobilinogen Normalmg/dL (NORMAL) Urine Leukocyte Esterase Negative (NEGATIVE) Urine RBC 0-2/hpf (0-2) Urine WBC 0-5/hpf (0-5) Urine Epithelial Cells Occasional/hpf (NONE-MOD) Urine Crystals None seen (NONE SEEN) Urine Bacteria Many/hpf (NONE-FEW) Urine Hyaline Casts None/lpf (NONE) Urine Granular Casts None seen (NONE SEEN) Urine Waxy Casts None seen (NONE SEEN) Urine Red Blood Cell Casts None seen (NONE SEEN) Urine White Blood Cell Casts None seen (NONE SEEN) Urine Mucus None seen (None Seen) Urine Trichomonas None seen (NONE SEEN) Urine Yeast None (NONE SEEN) Urinalysis Comment None Urine Culture Reflexed Indicated Thyroid Stimulating Hormone (TSH) 1.190uIU/mL (0.450-4.500) Free Thyroxine 1.79ng/dL (0.82-1.77) Test 09/29/16 12:45 10/01/16 02:55 Hold Urine Received (Received) White Blood Count 5.9th/mm3 (3.8-10.1) Red Blood Count 3.96mil/mm3 (3.90-5.20) Hemoglobin 11.8g/dL (12.0-15.6) Hematocrit 35.3% (35.0-46.0) Mean Corpuscular Volume 89.1fL (81-100) Mean Corpuscular Hemoglobin 29.8pg (27.0-35.0) Mean Corpuscular Hemoglobin Concent 33.4% (32.0-37.0) Red Cell Distribution Width 14.0% (12.3-15.4) Platelet Count 207bil/L (150-400) Neutrophils (%) (Auto) 51.7% (40-74) Lymphocytes (%) (Auto) 29.1% (14-46) Monocytes (%) (Auto) 9.4% (4-12) Eosinophils (%) (Auto) 8.9% (0-5) Basophils (%) (Auto) 0.7% (0-3) Prothrombin Time 12.6sec (8.1-12.5) Prothromb Time International Ratio 1.17ratio Activated Partial Thromboplast Time 76.5sec (22.8-33.0) Sodium Level 144mEq/L (134-144) Potassium Level 3.4mEq/L (3.5-5.2) Chloride Level 106mEq/L (97-108) Carbon Dioxide Level 25mmol/L (18-29) Blood Urea Nitrogen 15mg/dL (8-27) Creatinine 0.88mg/dL (0.57-1.00) Estimat Glomerular Filtration Rate 88mL/min (>59) Glucose Level 107mg/dL (60-99) Calcium Level 8.8mg/dL (8.5-10.1) Assessment/Plan Assessment/Plan WARFARIN DOSING PER PHARMACY ON THIS 80 YR OLD FEMALE PATIENT WITH PE ( ORIGINAL DOSING ORDER DC'D ON 09/28) SHE IS CURRENTLY STILL ON HEPARIN BUT IS NO LONGER TAKING TAMOXIFEN. PLAN CURRENT INR (8 AM) IS 1.17 GIVE WARFARIN 5 MG ONE TIME (10/01) DRAW DAILY INR DESIRED INR RANGE TO BE 2-3 PHARMACY TO MONITOR INR AND DOSE ACCORDINGLY THANK YOU FOR THE CONSULT IN THIS PATIENT'S CARE. Lori Enriquez RPH Oct 01, 2016 22:03
[2016-10-02] VITALS (9 sets, daily range): BP systolic 129–155; BP diastolic 61–76; PULSE 63–73; RESP 14–22; O2SAT 92–98
[2016-10-02] MEDS: Sodium Chloride LOK Flush 10 mL Syringe IVFLUSH SCH ×3 (00:50→15:56)
[2016-10-02 03:32] LABS: Mean Corpuscular Hemoglobin 29.6 pg (27.0-35.0)
[2016-10-02] MEDS: Heparin 25K Unit/500mL 0.45 NS 25,000 UNIT in IV Premix 1 EACH IV SCH ×2 (03:39→21:08)
[2016-10-02 03:48] LABS: INR 1.11 ratio
--- NOTE | 2016-10-02 04:05 | NUR ---
Bowel Movement: Pt. passed small, light brown bowel movement during shift, guaiac sent. No results of guaiac available at this time. No overt signs or symptoms of distress. Pt. resting quietly in room for majority of shift.
--- NOTE | 2016-10-02 13:17 | PCM.PHAPRO ---
Progress Date of Service: Oct 02, 2016 Warfarin Management per Pharmacy: Indication: Bilateral PE Home Dose: New start Labs: Hgb/Hct: 11.8/35.5 Plt: 182 INR: 1.11 Antiplatelet: Aspirin 325 mg Anticoagulants: Heparin gtts Drug-Drug Interactions: None Date Oct 02-Sep INR 1.17 1.11 Warf Dose 5 MG 7.5 MG Recommendation: Warfarin 7.5 mg PO x 1 today at 1700 Pharmacy to continue to monitor for signs/symptoms of bleeding. Thank You, Shahnaz Richardson, Pharm D. Shahnaz Richardson Oct 02, 2016 13:17
[2016-10-02] MEDS: HYDROcodone-APAP 5-325 mg Tablet PO PRN ×2 (15:56→16:35)
--- NOTE | 2016-10-02 16:32 | PCM.PALLBR ---
Palliative Brief Note Date of Service Oct 02, 2016 . Asked to follow up with pt by medical team due to her requests to stop all anticoag and go home with hospice and . Patient states she has no recall of any of these discussions. She has no recall of Dr. Marlow and PC discussions and she asks all discussion to go through her son who apparently was here with his but now gone. Questions re assisted care vs home with hospice hopefully to engage tomorrow. Simona Santo, Lucretia Gong MD Oct 02, 2016 16:32
[2016-10-02] MEDS ORDERED: Warfarin 5 MG, Warfarin 2.5 MG PO ONE ×2 (17:00)
--- NOTE | 2016-10-02 18:00 | PCM.PNMED ---
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 She presented to [facility] ED for progressively worsening shortness of breath and found to have bilateral pulmonary emboli. Overnight: no adverse events Patient resting in bed comfortably and in no acute distress. She reports that she does not want to live much longer. She has no complaints overall. She denies headache, chest pain, shortness of breath, palpitation, abdominal pain, nausea, vomiting, fever, chills, dysuria, diarrhea or constipation. She has normal appetite. She is voiding and eliminating without difficulty. She is up and ambulating within the room. Comprehensive review of systems conducted and was negative except for the pertinent positives listed above. Exam Vital Signs Vital Sign - Last Date Time Temp Pulse Resp B/P Pulse Ox O2 Delivery O2 Flow Rate FiO2 10/02/16 13:54 Room Air 10/02/16 13:47 36.7 69 20 134/72 96 09/28/16 11:40 4.00 Intake and Output 10/01/16 10/01/16 10/02/16 Cumulative From/Thru 15:00 23:00 07:00 09/26/16 14:19 - 10/02/16 05:56 Intake Total 737 ml 769 ml 94764 ml Output Total 1700 ml 650 ml 8801 ml Balance -963 ml 119 ml 2287 ml Intake Oral 360 ml 400 ml 5860 ml IV Total 377 ml 369 ml 5228 ml Output Urine Total 1700 ml 650 ml 7600 ml Stool Total 150 ml Urine/Stool Mix 1051 ml # Voids 6 # Bowel Movements 4 2 11 Exam General: Alert, Oriented X3, Cooperative, No Acute Distress Head: Normocephalic, atraumatic Eyes: PERRLA, EOMI. ENT: Mucous Membranes Moist/[place] Chest & Lungs: Clear to auscultation bilaterally with no crackles, wheezes, or rhonchi. Cardiovascular: Regular Rate/Rhythm, Normal S1, Normal S2, No Murmurs/Rubs/ Gallops Abdomen: Non-tender, Non-distended, No masses, Normoactive bowel tones, Soft Extremities: No cyanosis/clubbing/edema bilaterally Neurological: Grossly Neurologically Intact Lab and Diagnostics Result Diagram: 10/02/16 0300 10/02/16 0300 Microbiology Influenza screen negative. . X-Rays, CTs and MRIs X-RAY CHEST ONE VIEW, PORTABLE IMPRESSION: Cardiomegaly. No acute pulmonary process. Dictated by: Divine Baum M.D. on 09/26/2016 at 15:32 Approved by: Divine Baum M.D. on 09/26/2016 at 15:32 CT ANGIO CHEST PULMONARY EMBOLISM IMPRESSION: 1. Extensive central pulmonary embolism bilaterally. The result was discussed with Dr. Bhat prior to dictation. Dictated by: Fabrizio Broussard M.D. on 09/26/2016 at 18:29 Approved by: Fabrizio Broussard M.D. on 09/26/2016 at 18:29 CT ABDOMEN AND PELVIS WITH CONTRAST IMPRESSION: 1. A stent present in the rectosigmoid junction which is thickened. No evidence for bowel obstruction. 2. Stable peritoneal carcinomatosis. 3. Wide-necked ventral hernia. Dictated by: Fabrizio Broussard M.D. on 09/26/2016 at 18:24 Approved by: Fabrizio Broussard M.D. on 09/26/2016 at 18:24 US VENOUS LEG DUPLEX BILATERAL IMPRESSION: Bilateral nonocclusive deep venous thrombosis in the inferior portions of the superficial femoral veins and popliteal veins. No significant discrepancy with preliminary [facility] report. Dictated by: Samuel Vo M.D. on 09/27/2016 at 8:49 Approved by: Samuel Vo M.D. on 09/27/2016 at 8:49 . 12-lead ECG EKG: Sinus rhythm, heart rate 77, borderline AR intervals and QTc prolongation of 503 ms, nonspecific abnormalities in anterior leads with T wave flattening, no pathological q waves or acute ischemic changes such as ST elevation or depression. . Cardiac Echo Impressions Echocardiogram Interpretation Summary: Left ventricular systolic function is normal with the ejection fraction visually estimated to be 65-70% without focal wall motion abnormalities except for a flattened interventricular septum, consistent with a right ventricular pressure overload condition which is new compared to the previous study. Left ventricular wall thickness is mild-moderately increased with a relatively small left ventricular cavity and diastolic parameters suggesting a relaxation abnormality of the left ventricle, consistent with normal filling pressures which is unchanged compared to the previous study. The right ventricle is moderately dilated and right ventricular systolic function is moderate to severely reduced which is new compared to the previous study. There is likely at least moderate pulmonary hypertension with the right ventricular systolic pressure estimated to be at least 47 mmHg assuming a right atrial pressure of 3 mm Hg. Comparison with the previous study is not possible because this was unable to be assessed on the previous study. The atria are not well visualized. There is mild tricuspid regurgitation but no other significant valvular heart disease. Reading Physician:01:51 PM . 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 Today patient is stating that she wants to and has not been communicative with staff. 1. Acute bilateral central pulmonary emboli, present on admission. Active. - CTA showed extensive central pulmonary embolism bilaterally. - Continue PE heparin gtt. - Venous Doppler shows bilateral non-occlusive deep venous thrombosis in the inferior portions of the superficial femoral veins and popliteal veins, as above - Echocardiogram as above. - Limited mobilization as she has extensive clot burden and mobilization may cause her to decompensate. - Does NOT have prescription drug coverage. Per her oncologist, Dr. Chowdhury, the patient can discharge on warfarin, Lovenox, or any of the novel anti- coagulants. - The self payer prices are Eliquis 534.64$, Pradaxa 416.49$, Xarelto 20 mg 403.74$, 15 mg 565.24$. - Family to consider options and will make decision in near future. - Will offer family and patient Lovenox bridge (Which patient refused 2 days ago ) or Warfarin at home. Consider INR must be therapeutic for 24 hours before discharge... INR (10/02/16) 1.1 2. Chronic depression, present on admission. Active. - Palliative care was consulted for goals of care and symptom management. Plan is to discuss with patient and family tomorrow to determine best course of medical treatment and patient wishes. - She expressed today that she wants us to let her . Her son Gino, who is next of kin was not available again to talk today. Plan to schedule a family meeting with palliative, hospitalist, and patient to discuss goals of care. - May need antidepressants as outpatient. Chronic Problems: Chronic restless leg syndrome, present on admission, Stable. - Admitting physician reported leg pain for which the patient denies today. - Continue pramipexole 0.25 mg daily before bedtime. - Continue hydrocodone 5-325 mg 1-2 tabs every four hours as needed for pain and morphine 1-2 mg IV as needed for severe pain pending palliative care recommendations. 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 - Recent peritoneal mets that caused rectosigmoid obstruction. - Continue Tamoxifen 20 mg twice daily. Chronic hypertension, present on admission, Stable. - Continue lisinopril 10 mg daily. Chronic dementia, present on admission, Stable. - Donepezil 5 mg daily before bedtime. - Continue ASA 325 mg daily. Chronic hypothyroidism, present on admission, Stable. - Continue levothyroxine 200 mcg daily. PRN antiemetics: Zofran and Maalox. PRN bowel regimen: Senna and MiraLAX. PRN analgesics: Tylenol High risk medications: IV Heparin gtt. Warfarin. Disposition: Discharge either home with family or Assisted living. Family meeting early this week to discuss goals of care again. . VTE Prophylaxis: Other (Heparin gtt) VTE Mechanical Devices: Intermittant Pneumatic CD Resuscitation Status: DNR/DNI:Do Not Resuscitate/Intubate Attending Statement The patient was seen and examined together with Dr. Saini on 10/02/2016 and I agree with the history, exam and plan as outlined in the note above. . KAMALA SAINI DO Oct 02, 2016 15:03 Terry Cavanaugh MD Oct 03, 2016 18:23
--- NOTE | 2016-10-02 19:17 | NUR ---
Palliative appt. Family in room at 1820, saying that they had come by earlier to have a palliative meeting. I was not made aware that they were here, but encouraged them to please call ahead of time tomorrow, so that we can make sure they meet with palliative care.
[2016-10-02] MEDS ORDERED: hydrOXYzine Pamoate 25 mg Capsule PO SCH (21:00)
[2016-10-03] MEDS: Sodium Chloride LOK Flush 10 mL Syringe IVFLUSH SCH ×3 (00:03→11:49)
[2016-10-03 02:58] LABS: BASOPHILS % (AUTO) 0.3 % (0-3); EOSINOPHILS % (AUTO) 6.8 % (0-5); Mean Corpuscular Hemoglobin 29.5 pg (27.0-35.0); Mean Corpuscular Volume 88.9 fL (81-100); NEUTROPHILS % (AUTO) 60.5 % (40-74); Platelet Count 186 bil/L (150-400)
[2016-10-03 03:19] LABS: INR 1.33 ratio
[2016-10-03 03:43] VITALS: BP 140/60; PULSE 67; RESP 20; O2SAT 93
--- NOTE | 2016-10-03 04:20 | NUR ---
Activity: Pt. ambulating to [facility] with standby assist multiple times during shift for voiding (no bowel movements passed). Pt. tolerates activity well. Denies pain. No overt signs or symptoms of distress. Pt. resting quietly in room with eyes closed for majority of shift.
[2016-10-03 08:00] VITALS: PULSE 61
[2016-10-03 10:08] VITALS: BP 137/69; PULSE 59; RESP 16; O2SAT 92
--- NOTE | 2016-10-03 10:26 | NUR ---
Social Work Note: Continued Discharge Planning Data& Assessment: Per pt son request, UR specialist faxed over pt clinicals to [facility] in [place] to review. YANIRA spoke with ADE Cook who will review clinicals and decide if pt is appropriate for their facility. If pt is appropriate, they will come and assess pt at bedside. SW to follow up with [facility] RN regarding potential acceptance. SW to continue to follow. Plan: Anticipated discharge to [facility] when medically ready vs. Home with family until the family is able to locate another [facility]. YANIRA to continue to follow. NELSON Cristina Addendum: 10/03/16 at 1118 by TAMI BUNCH YANIRA spoke with ADE Cook in admissions at [facility]. ADE Cook explained their facility has confirmed cases of flu and do not feel comfortable accepting any new patients until that is resolved. YANIRA spoke with pt son Gino regarding discharge planning. Pt son explained they have a place for pt and plan to stay with her until she can transition to [facility]. YANIRA discussed HH services with pt son. Pt son plans to discuss HH services with his and let SW know if that is something they are interested in. SW to follow up with pt son this afternoon to finalize discharge plan. YANIRA to continue to follow. NELSON Cristina
--- NOTE | 2016-10-03 10:33 | PCM.PNPALL ---
Date of Service Oct 03, 2016 Date of Hospital Admission: Sep 26, 2016 at 19:14 Date of Palliative Consult: Sep 27, 2016 Palliative Care Recommendation Pleasant 80-year-old woman with long history of indolent metastatic endometrial cancer, now presenting with bilateral pulmonary emboli. Significant forgetfulness/dementia, per her son significantly exacerbated with hospitalization. Palliative medicine consulted to review goals of care. Over the last 24 hours, patient now stating that she may not want to continue medical treatment of any sort. Will need to follow and assess the persistence of these feelings as well as reviewing it with her son/POA. Summary of palliative recommendations: -Symptom management (Pain/other)- continue symptomatic management ordered by hospitalist. Continues on IV heparin at this time- possible transition to Eliquis (versus other TSOAC) for long-term anticoagulation today or tomorrow once insurance coverage confirmed. Anticoag figured out and pt will be covered in another month. Depression reviewed consideration for antidepressant if persists when home. EOL-reviewed hospice and given info on [facility] [place] for info on DWD. She has mild dementia but I believe is very decisional and I do not think this would move DWD out of her reach. Her son states she is even clearer when home and not depressed. They have discussed this option in the recent past. -DPOA/Advanced Directives/POLST- DO NOT RESUSCITATE/DO NOT INTUBATE/comfort/ antibiotics OK/no artificial nutritional support. She is comfortable continuing medications she is currently using, but told me she did not want to return to the hospital again for further care. Her expressed wishes for care have varied somewhat during hospitalization, and will need to be reviewed and confirmed in the coming weeks with her and her son. For now, new POLST completed reflecting her current wishes. -Family/emotional support- her son has been very supportive. He and other family members are considering encouraging a transition to assisted living/SNF. Patient Goals: 1. Patient and family want to be told the truth about her illness, even if it is unpleasant. 2. Patient and family would like to be told prognosis when it can be predicted, to better guide treatment decisions. Additional Medical Diagnoses with primary management by Hospitalist team include : PE-patient on a heparin drip--needs to transition to oral Restless leg syndrome Leg pain- Uterine cancer- Hypertension- Problems: End of Life Preferences DO NOT RESUSCITATE/DO NOT INTUBATE/--comfort measures with preference not to return to the hospital and not to proceed with further CA treatment Interested in treatment for pain/suffering and involving Hospice. They have had an interview with hospice but [place] and plan if for her to move up to [place] Goals of Care AFH/Assisted living-not available for 2 weeks due to extensive flu in facility but this is still ultimate goal Disposition To be determined Resuscitation Status Resuscitation Status: DNR/DNI:Do Not Resuscitate/Intubate POLST Updates/Changes Previous POLST?: No POLST Discussed with: Patient, Spouse/Other (son) POLST Review Outcome: New Form Completed . Advanced Care Planning Address: Comfort care Symptom management: Depression Palliative Subjective Palliative Care Daily Responde: Patient, Family/Proxy (son Gino and his Geetha) Brief History 80 yo patient followed by Dr. Chowdhury with hx indolent endometrial CA metastatic with fairly stable peritoneal carcinomatosis as well as a distant hx melanoma admitted for SOB resulting from extensive yesica DVT and PEs. Note of RV strain and mild to mod LVH with diastolic dysfxn on ECHO. She also has mild baseline dementia. She had been on high dose tamoxifen for her treatment which has now been stopped due to its thrombotic risk. PC is consulted re GOC Subjective Patient c/o fatigue, mild SOB but just walked the jaramillo without O2. Denies pain. Has no recall of palliative care discussions over this hosp stay. Tendency toward diarrhea. Sleeping well without behavioral issues. c/o frustration re leigh ann in hosp and memory etc. Palliative Performance Scale PPS Ambulation: Reduced PPS Activity: Unable to do most activity PPS Self-Care: Occasional assistance necessary PPS Conscious Level: Full or confusion Performace Scale: 70% Responsive Patient Symptoms Pain (current): Mild Tiredness/Fatigue: Moderate Depression: Mild Anxiety: Mild Shortness of Breath: Mild Objective Findings Exam Vital Sign - Last Date Time Temp Pulse Resp B/P Pulse Ox O2 Delivery O2 Flow Rate FiO2 10/03/16 03:43 36.5 67 20 140/60 93 Room Air 09/28/16 11:40 4.00 Intake and Output 10/02/16 10/02/16 10/03/16 Cumulative From/Thru 15:00 23:00 07:00 09/26/16 14:19 - 10/03/16 06:09 Intake Total 987 ml 937 ml 58260 ml Output Total 1300 ml 850 ml 67239 ml Balance -313 ml 87 ml 2061 ml Intake Oral 560 ml 600 ml 7020 ml IV Total 427 ml 337 ml 5992 ml Output Urine Total 1300 ml 850 ml 9750 ml Stool Total 150 ml Urine/Stool Mix 1051 ml # Voids 3 9 # Bowel Movements 1 12 Objective Angry at being in hospital. Feels she has lost significant control Is depressed and can be tearful but son states that this is usual for her in hospital and getting her out she tends to rebound and be pleasant and conversational She has been fiercely independent and she states she refuses to be dependent on her children-is resistant even for a few days General: Alert, Oriented, Person, Place HEENT: PERRLA, EOMI, Scleral Anicteric Heart: Regular Rate/Rhythm Neuro: Follows Commands, Cranial Nerve 3-12 Intact, Other (ambulating in jaramillo with standby assist.) Extremities: Edema (1+), Other (thickened skin c/w stasis dermatitis and past edema) Lab/Diagnostics Lab and Imaging results reviewed in detail in EMR. Patient/Family Conference Members Present Family Members Present Son - Jessenia frank Medical Team Members Present? Simona CHAUHAN and Kayla Pickard CLINICAL PHARMACY COORDINATOR-PC Discussion/Goals of Care Discussion FAMILY UNDERSTANDING OF DISEASE: Patient and family both aware of ds and risk of recurrence PE as well as malignancy. Reviewed indolent nature of CA but now off tx so growth is unpredictable. Reviewed ? of continued tx-pt states NO. She had declined chemo in past but was willing to consider radtx. Now refusing all of it. reviewed consideration for hospice assist although her malignancy may be further down the line as far as consequences. She has discussed option of DWD with her family and remains interested. At this point she discusses using a gun but her family has removed them from her home. DISEASE PROGRESSION/EVIDENCE OF DECLINE: SYMPTOM BURDEN: Sx of SOB much improved as has strength. Appetite is down but pt remains overwt GOALS: Improve to some degree of independence. 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 I also spent an additional [ ] minutes counseling for advanced care planning with the patient/the patients family/the surrogate decision maker. copies to: Fabio Chowdhury MD, Deborah A MD Oct 03, 2016 10:33
--- NOTE | 2016-10-03 11:15 | NUR ---
Faxed clinicals to [facility] per [facility]
[2016-10-03 12:14] VITALS: BP 171/70; PULSE 67; RESP 18; O2SAT 94
--- NOTE | 2016-10-03 13:53 | PCM.DIMED ---
Roro Armijo DO 10/03/16 1353: Discharge Instructions Date of Service Oct 03, 2016 Dates of Hospitalization Sep 26, 2016 at 19:14 Discharge Diagnosis Discharge Diagnosis Acute bilateral central pulmonary emboli, present on admission. Active. Chronic depression, present on admission. Active. Chronic restless leg syndrome, present on admission, Stable. 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 Chronic hypertension, present on admission, Stable. Chronic dementia, present on admission, Stable. Chronic hypothyroidism, present on admission, Stable. Medication Instructions You will be provided with a card to get one free month of Eliquis, which is a drug to thin your blood. After that your insurance should cover the cost. Diet No restrictions Activity Home Health Phyical Therapy Call your provider Bleeding Patient Instructions Please follow up Gilma Miranda in 1 week. Please follow up with your oncologist, Dr. Chowdhury in 2-3 weeks. Follow-up plan Please follow up with palliative care outpatient as well. Patient can be transferred to SNF in two weeks. Follow-up with PCP in: 1 week Terry Cavanaugh MD 10/03/16 1824: Discharge Instructions Attending's Statement The patient was seen and examined together with Dr. Kay on 10/03/2016 and I agree with the history, exam and plan as outlined in the note above. . Roro Armijo DO Oct 03, 2016 13:53 Terry Cavanaugh MD Oct 03, 2016 18:24
[2016-10-03] MEDS ORDERED: SENN-133 PO (13:56)
[2016-10-03] MEDS ORDERED: APIX5TAB PO (13:56)
--- NOTE | 2016-10-03 15:00 | NUR ---
Discharge She discharged from [facility] 2004 to home via wheelchair and with her family accompanying her. They stated they would be staying with her 16/04 to provide care until a senior living facility could take her. Their first choice of SNF had an influenza outbreak and they didn't feel comfortable taking her there. Both peripheral IV's were discontinued intact as well as her telemetry. The discharge paperwork (MD/nurse instructions, care notes, prescriptions) were discussed and given to the family. Questions and concerns were addressed. She thanked staff for her care.
--- NOTE | 2016-10-03 15:05 | NUR ---
Social Work Note: Discharge Data& Assessment: Per pt is medically ready to discharge home via POV. SW did not receive a call back from [facility]. Pt son plans to contact them himself after pt is discharged. Pt son confirmed he and his plan to stay with pt in her home until they transition her to [facility]. Pt and pt son antonio salamanca have a preference for Home Health companies and agreed to refer to the rotating calender. Referral made to [facility] for PT and RN and access provided. Pt and pt children deny any other needs. No other discharge needs identified. Plan: Per pt is medically improved and ready to discharge home via POV with [facility] PT and RN to follow. Pt and pt children deny any other needs. No other discharge needs identified. NELSON Cristina
--- NOTE | 2016-10-03 15:22 | NUR ---
Palliative care note [facility] D/A: Met with pt and her son and dil for some time today. Family had just learned that [facility] had indicated that facility has the flu and if able to accept pt, will not be able to be accomplished until after the flu relinquishes its hold on facility. Discussed at length pt current condition and what her wishes might be. Family notes that pt has Medicare Part D now and that meds will be covered. Pt very desirous of getting out of hospital. Family believes that once pt gets to her own abode, that is much better able to function and exhibits less of the cognitive decline seen at [facility]. Family expressing very strong desire to be discharged today. Pt is noted to have been very independent all of her life and has managed her life so that all of her affairs are in order and she wishes to make minimal impact on her son's with her needs. Family discusses that pt wishes to return short term to her home while family finds [facility] for her in [place]. This is where pt has requested to spend her final days in order to place least amount of stress on her family. Family notes that they will stay with her while they await an ability to move her to [place]. Discussed further concept of Hospice. Note that pt and family have received a hospice informational visit during Aug 2016. It is felt that most likely pt will be a few days in [facility] and then move to [facility]. Discussed possibility of HOspice referral now but with moves between [facility], Dr. Santo has recommended that HH be ordered upon dc to provide bridge to future Hospice. Have discussed with cydney Ramos that Dr. Santo is recommending home with home health. Have recommended to family that once they know where pt will be moving to ([facility] in [facility]) and estimated date-to call [facility] to begin referral process. Family is familiar with [facility] and is aware of how to contact them. Pt is agreeable to this plan as is family. Pt wishes to dc today. P: No further need for palliative care to follow. Kayla CHENG, [facility]
--- NOTE | 2016-10-03 18:24 | PCM.PNMED ---
Subjective Date of Service Oct 03, 2016 Subjective Hospital Day 7 Cyndee Ware is an 80-year-old female with a PMH significant for moderate dementia and a long history of indolent low-grade metastatic ER-positive endometrioid adenocarcinoma on tamoxifen with recent peritoneal mets that caused rectosigmoid obstruction status post stenting. She presented to [facility] ED for progressively worsening shortness of breath and found to have bilateral pulmonary emboli. Overnight: no events reported Today patient stated that she has not been sleeping well, her mood continues to be depresses but she is managing "okay, I am fine with being depressed," She complains of being "glued to the bed" and would like to move around. ROS negative except as mentioned above. Exam Vital Signs Vital Sign - Last Date Time Temp Pulse Resp B/P Pulse Ox O2 Delivery O2 Flow Rate FiO2 10/03/16 03:43 36.5 67 20 140/60 93 Room Air 09/28/16 11:40 4.00 Intake and Output 10/02/16 10/02/16 10/03/16 Cumulative From/Thru 15:00 23:00 07:00 09/26/16 14:19 - 10/03/16 06:09 Intake Total 987 ml 937 ml 96294 ml Output Total 1300 ml 850 ml 02679 ml Balance -313 ml 87 ml 2061 ml Intake Oral 560 ml 600 ml 7020 ml IV Total 427 ml 337 ml 5992 ml Output Urine Total 1300 ml 850 ml 9750 ml Stool Total 150 ml Urine/Stool Mix 1051 ml # Voids 3 9 # Bowel Movements 1 12 Exam General: Alert, Oriented X3, Cooperative, No Acute Distress Head: Normocephalic, atraumatic Eyes: PERRLA, EOMI. ENT: Mucous Membranes Moist/[place] Chest & Lungs: Clear to auscultation bilaterally with no crackles, wheezes, or rhonchi. Cardiovascular: Regular Rate/Rhythm, Normal S1, Normal S2, No Murmurs/Rubs/ Gallops Abdomen: Non-tender, Non-distended, No masses, Normoactive bowel tones, Soft Extremities: No cyanosis/clubbing/edema bilaterally Neurological: Grossly Neurologically Intact Musculoskeletal: Strength 5/5 in all extremities, patient able to lift herself out of bed and ambulate with minimal assistance IVs and Medications IV Fluids Heparin Drip Medications Reviewed: Medications were reviewed in detail Lab and Diagnostics Result Diagram: 10/03/1623310/03/16233 Microbiology Influenza screen negative. . X-Rays, CTs and MRIs X-RAY CHEST ONE VIEW, PORTABLE IMPRESSION: Cardiomegaly. No acute pulmonary process. Dictated by: Divine Baum M.D. on 09/26/2016 at 15:32 Approved by: Divine Baum M.D. on 09/26/2016 at 15:32 CT ANGIO CHEST PULMONARY EMBOLISM IMPRESSION: 1. Extensive central pulmonary embolism bilaterally. The result was discussed with Dr. Bhat prior to dictation. Dictated by: Fabrizio Broussard M.D. on 09/26/2016 at 18:29 Approved by: Fabrizio Broussard M.D. on 09/26/2016 at 18:29 CT ABDOMEN AND PELVIS WITH CONTRAST IMPRESSION: 1. A stent present in the rectosigmoid junction which is thickened. No evidence for bowel obstruction. 2. Stable peritoneal carcinomatosis. 3. Wide-necked ventral hernia. Dictated by: Fabrizio Broussard M.D. on 09/26/2016 at 18:24 Approved by: Fabrizio Broussard M.D. on 09/26/2016 at 18:24 US VENOUS LEG DUPLEX BILATERAL IMPRESSION: Bilateral nonocclusive deep venous thrombosis in the inferior portions of the superficial femoral veins and popliteal veins. No significant discrepancy with preliminary Nightshift report. Dictated by: Samuel Vo M.D. on 09/27/2016 at 8:49 Approved by: Samuel Vo M.D. on 09/27/2016 at 8:49 . 12-lead ECG EKG: Sinus rhythm, heart rate 77, borderline ME intervals and QTc prolongation of 503 ms, nonspecific abnormalities in anterior leads with T wave flattening, no pathological q waves or acute ischemic changes such as ST elevation or depression. . Cardiac Echo Impressions Echocardiogram Interpretation Summary: Left ventricular systolic function is normal with the ejection fraction visually estimated to be 65-70% without focal wall motion abnormalities except for a flattened interventricular septum, consistent with a right ventricular pressure overload condition which is new compared to the previous study. Left ventricular wall thickness is mild-moderately increased with a relatively small left ventricular cavity and diastolic parameters suggesting a relaxation abnormality of the left ventricle, consistent with normal filling pressures which is unchanged compared to the previous study. The right ventricle is moderately dilated and right ventricular systolic function is moderate to severely reduced which is new compared to the previous study. There is likely at least moderate pulmonary hypertension with the right ventricular systolic pressure estimated to be at least 47 mmHg assuming a right atrial pressure of 3 mm Hg. Comparison with the previous study is not possible because this was unable to be assessed on the previous study. The atria are not well visualized. There is mild tricuspid regurgitation but no other significant valvular heart disease. Reading Physician:01:51 PM . Assessment & Plan Cyndee Ware is an 80-year-old female with a past medical history significant for moderate dementia and a long history of indolent low-grade metastatic ER- positive endometrioid adenocarcinoma on tamoxifen with recent peritoneal mets that caused rectosigmoid obstruction status post stenting who presented to [facility] ED for progressively worsening shortness of breath and found to have bilateral pulmonary emboli. Hospital day 7 1. Acute bilateral central pulmonary emboli, present on admission. Active. - CTA showed extensive central pulmonary embolism bilaterally. - Continue PE heparin gtt. Switch to oral antiplatelet therapy likely Eliquis as a 1 month bridge to Warfarin - Venous Doppler shows bilateral non-occlusive deep venous thrombosis in the inferior portions of the superficial femoral veins and popliteal veins, as above - Echocardiogram as above. - Patient is able to moblize herself in and out of bed, PT eval places to help continue to moblize patient and determine home vs SNF for discharge - Does NOT have prescription drug coverage. Per her oncologist, Dr. Chowdhury, the patient can discharge on warfarin, Lovenox, or any of the novel anti- coagulants. - The self payer prices are Eliquis 534.64$, Pradaxa 416.49$, Xarelto 20 mg 403.74$, 15 mg 565.24$. - Family to consider options and will make decision in near future. - Will offer family and patient Eliquis or Warfarin at home. Consider INR must be therapeutic for 24 hours before discharge... INR (10/03/16) 1.3 2. Chronic depression, present on admission. Active. - Palliative care was consulted for goals of care and symptom management. Plan is to discuss with patient and family tomorrow to determine best course of medical treatment and patient wishes. - She again expressed today that she wants us to let her . Her son Gino, who is next of kin was not available again to talk today Home phone number [phone] cell [phone]. Plan to schedule a family meeting today with palliative, hospitalist, and patient to discuss goals of care. - Start Trazodone today, patient will likley need continuation of antidepressant medication on outpatient basis Chronic Problems: Chronic restless leg syndrome, present on admission, Stable. - Admitting physician reported leg pain for which the patient denies today. - Continue pramipexole 0.25 mg daily before bedtime. - Continue hydrocodone 5-325 mg 1-2 tabs every four hours as needed for pain and morphine 1-2 mg IV as needed for severe pain pending palliative care recommendations. 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 - Recent peritoneal mets that caused rectosigmoid obstruction. - Continue Tamoxifen 20 mg twice daily. Chronic hypertension, present on admission, Stable. - Continue lisinopril 10 mg daily. Chronic dementia, present on admission, Stable. - Donepezil 5 mg daily before bedtime. - Continue ASA 325 mg daily. Chronic hypothyroidism, present on admission, Stable. - Continue levothyroxine 200 mcg daily. PRN antiemetics: Zofran and Maalox. PRN bowel regimen: Senna and MiraLAX. PRN analgesics: Tylenol High risk medications: IV Heparin gtt. Warfarin. Disposition: Likely Discharge either home with family or Assisted living facility today pending Family meeting today. Pain Evaluation: Adequate Pain Control VTE Prophylaxis: Other (Heparin gtt) VTE Mechanical Devices: Intermittant Pneumatic CD Resuscitation Status: DNR/DNI:Do Not Resuscitate/Intubate Attending Statement The patient was seen and examined together with Dr. Saini on 10/03/2016 and I agree with the history, exam and plan as outlined in the note above. . KAMALA SAINI DO Oct 03, 2016 06:36 Terry Cavanaugh MD Oct 06, 2016 16:11
--- NOTE | 2016-10-03 18:24 | PCM.DC.MED ---
Discharge Summary Date of Service Oct 03, 2016 Dates of Hospitalization Date of Hospital Admission Sep 26, 2016 at 19:14 Date of Discharge: Oct 03, 2016 Providers: Admitting Physician: Paul Max MD Primary Care Physician: Gilma Worrell Attending Physician: Paul Max MD Diagnosis at Time of Discharge Diagnosis at Time of Discharge Acute bilateral central pulmonary emboli, present on admission. Active. Chronic depression, present on admission. Active. Chronic restless leg syndrome, present on admission, Stable. 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 Chronic hypertension, present on admission, Stable. Chronic dementia, present on admission, Stable. Chronic hypothyroidism, present on admission, Stable. Consultations Palliative Care Procedures XRay, CTs & MRIs X-RAY CHEST ONE VIEW, PORTABLE IMPRESSION: Cardiomegaly. No acute pulmonary process. Dictated by: Divine Baum M.D. on 09/26/2016 at 15:32 Approved by: Divine Baum M.D. on 09/26/2016 at 15:32 CT ANGIO CHEST PULMONARY EMBOLISM IMPRESSION: 1. Extensive central pulmonary embolism bilaterally. The result was discussed with Dr. Bhat prior to dictation. Dictated by: Fabrizio Broussard M.D. on 09/26/2016 at 18:29 Approved by: Fabrizio Broussard M.D. on 09/26/2016 at 18:29 CT ABDOMEN AND PELVIS WITH CONTRAST IMPRESSION: 1. A stent present in the rectosigmoid junction which is thickened. No evidence for bowel obstruction. 2. Stable peritoneal carcinomatosis. 3. Wide-necked ventral hernia. Dictated by: Fabrizio Broussard M.D. on 09/26/2016 at 18:24 Approved by: Fabrizio Broussard M.D. on 09/26/2016 at 18:24 US VENOUS LEG DUPLEX BILATERAL IMPRESSION: Bilateral nonocclusive deep venous thrombosis in the inferior portions of the superficial femoral veins and popliteal veins. No significant discrepancy with preliminary [facility] report. Dictated by: Samuel Vo M.D. on 09/27/2016 at 8:49 Approved by: Samuel Vo M.D. on 09/27/2016 at 8:49 . ECG 12 Lead EKG: Sinus rhythm, heart rate 77, borderline OK intervals and QTc prolongation of 503 ms, nonspecific abnormalities in anterior leads with T wave flattening, no pathological q waves or acute ischemic changes such as ST elevation or depression. . Cardiac Echo Impression Echocardiogram Interpretation Summary: Left ventricular systolic function is normal with the ejection fraction visually estimated to be 65-70% without focal wall motion abnormalities except for a flattened interventricular septum, consistent with a right ventricular pressure overload condition which is new compared to the previous study. Left ventricular wall thickness is mild-moderately increased with a relatively small left ventricular cavity and diastolic parameters suggesting a relaxation abnormality of the left ventricle, consistent with normal filling pressures which is unchanged compared to the previous study. The right ventricle is moderately dilated and right ventricular systolic function is moderate to severely reduced which is new compared to the previous study. There is likely at least moderate pulmonary hypertension with the right ventricular systolic pressure estimated to be at least 47 mmHg assuming a right atrial pressure of 3 mm Hg. Comparison with the previous study is not possible because this was unable to be assessed on the previous study. The atria are not well visualized. There is mild tricuspid regurgitation but no other significant valvular heart disease. Reading Physician:01:51 PM . Brief History Pt is a 80 y/o female with a history of metastatic low-grade endometrial adenocarcinoma, HTN, hyperlipidemia, presenting to the ED with her son c/o progressively worsening SOB onset 3 days ago. She believes her SOB is due to ascites. Pt c/o associated diarrhea for 2 days. Pt denies cough, change in lower extremity edema, abdominal pain, chills, fever, chest pain. She was discharged 30 days ago due to SBO. During that admission she had a bowel stent placed. She does not believe her symptoms are due to Influenza. Patient admitted for bilateral PE. SW involved in patient case due to lack of insurance and inability to afford anticoagulation medication other than warfarin once discharged from hospital. During course of stay patient requested arrangements to be made for transfer to hospice care at home or assisted living facility. Hospital Course Cyndee Ware is an 80-year-old female with a past medical history significant for moderate dementia and a long history of indolent low-grade metastatic ER- positive endometrioid adenocarcinoma on tamoxifen with recent peritoneal mets that caused rectosigmoid obstruction status post stenting who presented to [facility] ED for progressively worsening shortness of breath and found to have bilateral pulmonary emboli. Today patient is stating that she wants to and has not been communicative with staff. 1. Acute bilateral central pulmonary emboli, present on admission. Active. - CTA showed extensive central pulmonary embolism bilaterally. - Discontinued PE heparin gtt 10/03/16 - Venous Doppler showed bilateral non-occlusive deep venous thrombosis in the inferior portions of the superficial femoral veins and popliteal veins, as above - Echocardiogram as above. - Patient evaluated by PT to encourage mobilization. - Does NOT have prescription drug coverage. Per her oncologist, Dr. Chowdhury, the patient can discharge on warfarin, Lovenox, or any of the novel anti- coagulants. - The self payer prices are Eliquis 534.64$, Pradaxa 416.49$, Xarelto 20 mg 403.74$, 15 mg 565.24$. - Family to consider options and will make decision in near future. - Will offer family and patient temporary bridge with Eliquis due to temporary discount for one month and continue with Warfarin at home. INR () 1.13 2. Chronic depression, present on admission. Active. - Palliative care was consulted for goals of care and symptom management. Plan is to discuss with patient and family tomorrow to determine best course of medical treatment and patient wishes. - She expressed today that she wants us to let her . Her son Gino, who is next of kin was not available again to talk today. Family meeting with palliative, hospitalist, and patient scheduled prior to discuss goals of care. - Recommend continuation of antidepressant mediation as outpatient. Chronic Problems: Chronic restless leg syndrome, present on admission, Stable. - Admitting physician reported leg pain for which the patient denies today. 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 - Recent peritoneal mets that caused rectosigmoid obstruction. - Continue Tamoxifen 20 mg twice daily. Chronic hypertension, present on admission, Stable. - Continue lisinopril 10 mg daily. Chronic dementia, present on admission, Stable. - Donepezil 5 mg daily before bedtime. - Continue ASA 325 mg daily. Chronic hypothyroidism, present on admission, Stable. - Continue levothyroxine 200 mcg daily. High risk medications: Warfarin. Disposition: Discharge either home with family or Assisted living. Family meeting early this week to discuss goals of care again. . Exam Vital Signs (Last) Date Time Temp Pulse Resp B/P Pulse Ox O2 Delivery O2 Flow Rate FiO2 10/03/16 12:14 37.0 67 18 171/70 94 Room Air 09/28/16 11:40 4.00 Exam General: Alert, Oriented X3, Cooperative, No Acute Distress Head: Normocephalic, atraumatic Eyes: PERRLA, EOMI. ENT: Mucous Membranes Moist/[place] Chest & Lungs: Clear to auscultation bilaterally with no crackles, wheezes, or rhonchi. Cardiovascular: Regular Rate/Rhythm, Normal S1, Normal S2, No Murmurs/Rubs/ Gallops Abdomen: Non-tender, Non-distended, No masses, Normoactive bowel tones, Soft Extremities: No cyanosis/clubbing/edema bilaterally Neurological: Grossly Neurologically Intact Test 09/26/16 15:31 09/27/16 05:48 09/27/16 10:47 09/29/16 02:50 D-Dimer 5.1mg/L (<0.50) Magnesium Level 2.1mg/dL (1.6-2.6) Total Bilirubin 0.3mg/dL (0.0-1.2) Aspartate Amino Transf (AST/SGOT) 37U/L (0-50) Alanine Aminotransferase (ALT/SGPT) 33U/L (0-32) Alkaline Phosphatase 56U/L (25-165) Pro-B-Type Natriuretic Peptide 7516pg/mL (0-738) Total Protein 6.6g/dL (6.4-8.4) Albumin 3.7g/dL (3.4-5.0) Hold Harper Top Tube Received (Received) Troponin T 0.013ug/L (0.0-0.011) Urine Color Straw (YELLOW) Urine Appearance Hazy (CLEAR,HAZY) Urine pH 5.5 (5.0-8.0) Urine Specific Mclean 1.010 (1.003-1.035) Urine Protein Negativemg/dL (NEG,TRACE) Urine Glucose (UA) Negativemg/dL (NEGATIVE) Urine Ketones Negativemg/dL (NEGATIVE) Urine Occult Blood Negative (NEGATIVE) Urine Nitrite Negative (NEGATIVE) Urine Bilirubin Negative (NEGATIVE) Urine Urobilinogen Normalmg/dL (NORMAL) Urine Leukocyte Esterase Negative (NEGATIVE) Urine RBC 0-2/hpf (0-2) Urine WBC 0-5/hpf (0-5) Urine Epithelial Cells Occasional/hpf (NONE-MOD) Urine Crystals None seen (NONE SEEN) Urine Bacteria Many/hpf (NONE-FEW) Urine Hyaline Casts None/lpf (NONE) Urine Granular Casts None seen (NONE SEEN) Urine Waxy Casts None seen (NONE SEEN) Urine Red Blood Cell Casts None seen (NONE SEEN) Urine White Blood Cell Casts None seen (NONE SEEN) Urine Mucus None seen (None Seen) Urine Trichomonas None seen (NONE SEEN) Urine Yeast None (NONE SEEN) Urinalysis Comment None Urine Culture Reflexed Indicated Thyroid Stimulating Hormone (TSH) 1.190uIU/mL (0.450-4.500) Free Thyroxine 1.79ng/dL (0.82-1.77) Test 09/29/16 12:45 10/03/16 02:34 Hold Urine Received (Received) White Blood Count 6.9th/mm3 (3.8-10.1) Red Blood Count 4.13mil/mm3 (3.90-5.20) Hemoglobin 12.2g/dL (12.0-15.6) Hematocrit 36.7% (35.0-46.0) Mean Corpuscular Volume 88.9fL (81-100) Mean Corpuscular Hemoglobin 29.5pg (27.0-35.0) Mean Corpuscular Hemoglobin Concent 33.2% (32.0-37.0) Red Cell Distribution Width 14.1% (12.3-15.4) Platelet Count 186bil/L (150-400) Neutrophils (%) (Auto) 60.5% (40-74) Lymphocytes (%) (Auto) 24.3% (14-46) Monocytes (%) (Auto) 8.0% (4-12) Eosinophils (%) (Auto) 6.8% (0-5) Basophils (%) (Auto) 0.3% (0-3) Prothrombin Time 14.3sec (8.1-12.5) Prothromb Time International Ratio 1.33ratio Activated Partial Thromboplast Time 70.4sec (22.8-33.0) Sodium Level 145mEq/L (134-144) Potassium Level 3.4mEq/L (3.5-5.2) Chloride Level 103mEq/L (97-108) Carbon Dioxide Level 24mmol/L (18-29) Blood Urea Nitrogen 18mg/dL (8-27) Creatinine 0.93mg/dL (0.57-1.00) Estimat Glomerular Filtration Rate 83mL/min (>59) Glucose Level 116mg/dL (60-99) Calcium Level 8.7mg/dL (8.5-10.1) Microbiology Results Influenza screen negative. . Discharge Medications Discharge Medications Apixaban (Eliquis) 5 Mg Tablet 10 MG PO BID 10 mg twice daily for 7 days followed by 5 mg twice daily Prescribed by: MICHAEL JAIN DO Aspirin (Aspirin) 325 Mg Tablet 325 MG PO DAILY (Reported) Cholecalciferol (Vitamin D3) (Vitamin D3) 5,000 Unit Capsule 5,000 UNIT PO 4xweekly (Reported) Donepezil (Donepezil) 5 Mg Tablet 5 MG PO HS (Reported) Folic Acid (Folic Acid) 0.8 Mg Capsule 0.8 MG PO DAILY (Reported) Furosemide (Furosemide) 40 Mg Tablet 40 MG PO DAILY (Reported) Levothyroxine (Levothyroxine) 200 Mcg Tablet 200 MCG PO DAILY (Reported) Lisinopril (Lisinopril) 10 Mg Tablet 10 MG PO DAILY (Reported) Magnesium Oxide (Magnesium Oxide) 400 Mg Tablet 400 MG PO DAILY (Reported) Pramipexole Dihydrochloride (Pramipexole Dihydrochloride) 0.5 Mg Tablet 0.25 MG PO HS (Reported) Tamoxifen Citrate (Tamoxifen Citrate) 20 Mg Tablet 20 MG PO BID (Reported) As needed Fluticasone Propionate (Fluticasone Propionate Nasal) 16 Gm Superior.susp 2 SPRAY NS DAILY PRN PRN allergies (Reported) Nitroglycerin SL (Nitroglycerin SL) 0.4 Mg Tab.subl 0.4 MG SL Q5MIN PRN PRN For Chest Pain (Reported) Polyethylene Glycol 3350 (Miralax) 17 Gm Powd.pack 17 GM PO DAILY PRN PRN For Constipation (Reported) Sennosides (Senna) 8.6 Mg Tablet 17.2 MG PO BID PRN PRN For Constipation Prescribed by: MICHAEL JAIN, DO Additional med instructions You will be provided with a card to get one free month of Eliquis, which is a drug to thin your blood. After that your insurance should cover the cost. Followup Plan Follow-up plan Please follow up with palliative care outpatient as well. Patient can be transferred to SNF in two weeks. Discharge Diet: No restrictions Discharge Activity: Home Health Phyical Therapy Patient Instructions Please follow up Gilma Miranda in 1 week. Please follow up with your oncologist, Dr. Chowdhury in 2-3 weeks. Follow-up with PCP in: 1 week Time spent Greater than 30 minutes was spent in preparation of discharge with greater than 50% of that time dedicated to patient counseling and coordination of care. . Attending Statement The patient was seen and examined together with Dr. Saini on 10/03/2016 and I agree with the history, exam and plan as outlined in the note above. . KAMALA SAINI DO Oct 03, 2016 16:14 Terry Cavanaugh MD Oct 06, 2016 16:12
--- NOTE | 2016-10-17 11:22 | NUR ---
Palliative care note (late note for 10/11/16) Phone call to pt home to discuss how she is doing post recent acute care admit. (Pt dc'ed to her home with CG from family, pending placement at [facility] with hospice assist. ) Spoke to pt on phone-she indicated she was unable to answer this workers questions as she had short term memory loss. Kayla CHENG, CCM
--- NOTE | 2016-10-17 11:36 | NUR ---
Palliative care note D/A: Phone call to pt yonis Christian and henrietta Iniguez. Called to cell [phone] and home at [phone]. Left message asking about progress towards goal of [facility] ([facility]?) with possible assistance from [facility]. Have left messages at both numbers with this workers name and number. P: Palliative care to follow as needed. Kayla CHENG, [facility] Addendum: 10/17/16 at 1250 by AAYUSH BENTLEY Palliative care note D/A: Phone msg from henrietta Iniguez and also speak to pt yonis Christian. Both note that due to flu in [place]-placement has taken longer than expected. Gino is finishing arrangements with [facility] and there is hope that placement may happen this week. Gino is also discussing with pt LTC policy to establish a claim. They are on wait list to establish with medical provider. Do not feel a need for hospice or home health at this time. P: Palliative care to follow as needed. ' ' Kayla CHENG, [facility]
== END 2016-10-03 14:50 | disposition home or self-care (01) | DRG 176 ==
LOC: SED 14:15 → PCC 19:14
PROVIDERS: ADMIT Hospitalist; ATTEND Hospitalist
DX: I26.99 Other pulmonary embolism without acute cor pulmonale (principal); Z79.82 Long term (current) use of aspirin; Z92.21 Personal history of antineoplastic chemotherapy; Z85.51 Personal history of malignant neoplasm of bladder; Z66 Do not resuscitate; Z51.5 Encounter for palliative care; G25.81 Restless legs syndrome; C54.1 Malignant neoplasm of endometrium; I10 Essential (primary) hypertension; F03.90 Unspecified dementia, unspecified severity, without behavioral disturbance, psychotic disturbance, mood disturbance, and anxiety; E03.9 Hypothyroidism, unspecified; Z17.0 Estrogen receptor positive status [ER+]; F32.9 Major depressive disorder, single episode, unspecified